=== PATIENT | female | born 1955 | race Caucasian/White ===

== ENCOUNTER → 2017-01-26 | Outpatient (CLI) | payer MEDICARE, OTHER ==
[2015-11-19 08:25] VITALS: BP 135/65
--- NOTE | 2017-01-26 16:37 | RAD ---
Chest CT without contrast Clinical indications: Cough and shortness of air. Smoker for 40 years. Comparison: No previous chest CT. Technique: Noncontrast helical CT scanning of the chest was performed. Multiplanar 2-D reconstructions were generated. PQRS Compliance Statement: One or more of the following individualized dose reduction techniques were utilized for this examination: 1. Automated exposure control 2. Adjustment of the mA and/or kV according to patient size 3. Use of iterative reconstruction technique Findings: No enlarged thoracic lymphadenopathy is seen. The heart size is normal and no pericardial effusion is seen. Calcified atheromatous disease of the coronary arteries is seen. No focal aneurysmal dilatation of the thoracic aorta is seen. There is a spiculated nodule within the right apex measuring 8 mm in size seen on images 13 and 14 and series 2. There is a round smooth nodule measuring only 3 mm in size within the lateral aspect of the left apex seen on image 16 and series 2. There is a noncalcified 7 mm lung nodule within the posterior basal segment of the left lower lobe seen on image 69 and series 2. No consolidative pneumonia is evident. There is some mild linear scarring or atelectasis within the inferior segment of the lingula. Bilateral centrilobular emphysema is seen. No pleural effusion or pneumothorax is seen. The proximal bronchial tree is patent. No adrenal mass is seen. There is mild compression deformity of T11. 13 ribs are seen. IMPRESSION: There is an 8.5 mm spiculated nodule within the right apex. This is near the PET resolution. A PET scan can be performed and if hypermetabolic, then a malignancy is possible. If not, then continued noncontrast chest CT follow-up in 3 months is recommended as per the Fleischner guidelines. The other 2 lung nodules may be followed with a noncontrast chest CT in 6 months as per the Fleischner guidelines. Emphysema. No lung consolidation is seen. Calcified atheromatous disease of the coronary arteries. Mild compression deformity of T11 of indeterminate age.
== END | disposition home or self-care (01) ==
LOC: CT 11:27
PROVIDERS: ATTEND Internal Medicine Pulmonary Disease
DX: J43.9 Emphysema, unspecified (principal); R91.1 Solitary pulmonary nodule; I25.10 Atherosclerotic heart disease of native coronary artery without angina pectoris; M43.8X4 Other specified deforming dorsopathies, thoracic region; F17.200 Nicotine dependence, unspecified, uncomplicated
CPT/HCPCS: 71250

== ENCOUNTER → 2017-05-11 | Outpatient (CLI) | payer MEDICARE ==
[2015-11-19 08:25] VITALS: BP 135/65
--- NOTE | 2017-05-11 16:54 | RAD ---
Indication: Follow-up pulmonary nodules. Technique: Axial images and coronal and sagittal reformatted images are provided. Comparison is from January 26, 2017. One or more of the following individualized dose reduction techniques were utilized for this examination: 1. Automated exposure control 2. Adjustment of the mA and/or kV according to patient size 3. Use of iterative reconstruction technique Findings: 8 x 7 mm spiculated lesion in the right apex is stable. Questioned nodule in the left apex appears calcified. Left lower lobe pulmonary nodule may actually represent 2 adjacent nodules, combined measurement of the 2 is by 6 mm, not appreciably changed compared to my measurement on prior There is apical scarring. There is emphysema which is moderate with an upper lobe predominance. Bandlike opacity in the right upper lobe may be posttreatment change. No new nodule is identified. There is no pleural effusion. There is debris in the esophagus. Heart is not enlarged. Coronary artery calcifications are noted. There is atheromatous disease in the thoracic aorta. There is no definite hilar or mediastinal adenopathy. There are degenerative changes in the spine. There is no adrenal mass. IMPRESSION: 1. Spiculated mass in the right upper lobe is stable. Because of the spiculation, a more aggressive timeline than would be recommended per Fleischner Society guidelines is suggested. I would suggest a follow-up in 3-6 months rather than in a year as Fleischner Society would recommend 2. Other nodules are stable. 3. Emphysema. Electronically signed by: Scottie Castillo MD (05/11/2017 4:51 PM) [id number]
== END | disposition home or self-care (01) ==
LOC: CT 11:19
PROVIDERS: ATTEND Internal Medicine Pulmonary Disease
DX: J43.9 Emphysema, unspecified (principal); I25.10 Atherosclerotic heart disease of native coronary artery without angina pectoris; I70.0 Atherosclerosis of aorta
CPT/HCPCS: 71250

== ENCOUNTER 2017-10-31 19:32 | Inpatient (IN) | payer MEDICARE ==
[~2017-10-31] VITALS: Ht 160 cm; Wt 47.8 kg
[2017-10-31] MEDS ORDERED: IPRATRPIUM/ALBUTEROL 0.5/2.5MG 3 ML NEBU. ONE (19:38)
[2017-10-31] MEDS ORDERED: IV RINGERS SOLUTION,LACTATED 1,000 ML IV SCH (19:40)
--- NOTE | 2017-10-31 19:40 | ED.ADGEN ---
Past History Past Medical History: Anxiety, COPD, Hypertension Past Surgical History: No Surgical History Alcohol Use: None Drug Use: None Adult General Chief Complaint Chief Complaint ".. I been getting.. sick... the last.....2 weeks....coughing.... up green... stuff....worse the .... last couple.........days..."..." can't ....get my....breath...." HPI HPI Patient is a 62 year old female who presents with above hx and complaints of dyspnea, productive cough, and generalized malaise. Pt. has been around a sick grandson. No recent travel. Pt. has hx of COPD and continue tobacco use of 1 and 1/2 packs per day. Pt. has not be oxygen dependant for her COPD as yet. No recent antibiotics or steroids. Pt. does follow at [facility] with Pulmonary Dr. Pandey and Cardiology ?. . Pt. has hx of COPD, HTN, Anxiety. Review of Systems Review of Systems Constitutional: Subjective fever or chills [] Eyes: Denies change in visual acuity, redness, or eye pain [] HENT: Denies nasal congestion or sore throat [] Respiratory: Hx. of cough or shortness of breath [] Cardiovascular: No additional information not addressed in HPI [] GI: Denies abdominal pain, nausea, vomiting, bloody stools or diarrhea [] : Denies dysuria or hematuria [] Musculoskeletal: Denies back pain or joint pain [] Integument: Denies rash or skin lesions [] Neurologic: Denies headache, focal weakness or sensory changes [] Endocrine: Denies polyuria or polydipsia [] All other systems were reviewed and found to be within normal limits, except as documented in this note. Family History Family History Non-contributory Current Medications Current Medications Current Medications Medications (Trade) Dose Ordered Sig/Peyton Start Time Stop Time Status Last Admin Dose Admin Albuterol/ Ipratropium (Duoneb) 3 ml STK-MED ONCE 10/31/17 19:38 10/31/17 19:39 DC Aspirin (Children'S Aspirin) 81 mg STK-MED ONCE 10/31/17 19:49 10/31/17 19:50 DC Azithromycin (Zithromax) 250 mg STK-MED ONCE 10/31/17 19:49 10/31/17 19:51 DC Ceftriaxone Sodium 1 gm/ Sodium Chloride 50 ml @ 100 mls/hr 1X ONCE 10/31/17 20:00 10/31/17 20:29 UNV Lactated Ringer's 1,000 ml @ 100 mls/hr Q10H 10/31/17 19:40 10/31/17 21:18 DC 10/31/17 19:56 100 MLS/HR Methylprednisolone Sodium Succinate (SOLU-Medrol 125MG VIAL) 125 mg STK-MED ONCE 10/31/17 19:49 10/31/17 19:50 DC Allergies Allergies Allergies Coded Allergies Type Severity Reaction Last Updated Verified No Known Drug Allergies 11/19/15 No Physical Exam Physical Exam Constitutional:in acute distress, ill in appearance. [] HENT: Normocephalic, atraumatic, bilateral external ears normal, oropharynx moist, no oral exudates, nose clear rhinorrhea. Eyes: PERRLA, EOMI, conjunctiva normal, no discharge. [] Neck: Normal range of motion, no tenderness, supple, no stridor. [] Cardiovascular:Tachycardia Heart rate regular rhythm, no murmur [] Lungs & Thorax: Bilateral breath sounds equal at apexes with scattered wheezing , purse lip breathing and retractions intercostal. [] Abdomen: Bowel sounds normal, soft, no tenderness, no masses, no pulsatile masses. [] Skin: Warm, diaphoretic, no erythema, no rash. [] Back: No tenderness, no CVA tenderness. [] Extremities: No tenderness, no cyanosis, no clubbing, ROM intact, no edema. [] Neurologic: Alert and oriented X 3, normal motor function, normal sensory function, no focal deficits noted. [] Psychologic: Affect anxious, judgement normal, mood normal. [] Current Patient Data Vital Signs Vital Signs Date Time Temp Pulse Resp B/P (MAP) Pulse Ox O2 Delivery O2 Flow Rate FiO2 10/31/17 19:46 90 Room Air 10/31/17 19:34 98.7 119 28 Lab Results Laboratory Tests Test 10/31/17 19:50 White Blood Count 16.1 x10^3/uL (4.0-11.0) H Red Blood Count 4.00 x10^6/uL (3.50-5.40) Hemoglobin 14.3 g/dL (12.0-15.5) Hematocrit 40.6 % (36.0-47.0) Mean Corpuscular Volume 101 fL (79-100) H Mean Corpuscular Hemoglobin 36 pg (25-35) H Mean Corpuscular Hemoglobin Concent 35 g/dL (31-37) Red Cell Distribution Width 12.4 % (11.5-14.5) Platelet Count 296 x10^3/uL (140-400) Neutrophils (%) (Auto) 87 % (31-73) H Lymphocytes (%) (Auto) 5 % (24-48) L Monocytes (%) (Auto) 7 % (0-9) Eosinophils (%) (Auto) 0 % (0-3) Basophils (%) (Auto) 0 % (0-3) Neutrophils # (Auto) 14.0 x10^3uL (1.8-7.7) H Lymphocytes # (Auto) 0.8 x10^3/uL (1.0-4.8) L Monocytes # (Auto) 1.2 x10^3/uL (0.0-1.1) H Eosinophils # (Auto) 0.0 x10^3/uL (0.0-0.7) Basophils # (Auto) 0.0 x10^3/uL (0.0-0.2) Segmented Neutrophils % 81 % (35-66) H Band Neutrophils % 4 % (0-9) Lymphocytes % 8 % (24-48) L Atypical Lymphocytes % (Manual) 2 % (0-0) H Monocytes % 5 % (0-10) Platelet Estimate Adequate (ADEQUATE) Prothrombin Time 10.8 SEC (9.4-11.4) Prothrombin Time INR 1.1 (0.9-1.1) PTT 34 SEC (23-33) H D-Dimer (Janey) 0.21 mg/L (0.00-0.50) Sodium Level 130 mmol/L (136-145) L Potassium Level 3.7 mmol/L (3.5-5.1) Chloride Level 95 mmol/L (98-107) L Carbon Dioxide Level 24 mmol/L (21-32) Anion Gap 11 (6-14) Blood Urea Nitrogen 7 mg/dL (7-20) Creatinine 0.5 mg/dL (0.6-1.0) L Estimated GFR (Cockcroft-Gault) 124.6 Glucose Level 148 mg/dL (70-99) H Calcium Level 9.0 mg/dL (8.5-10.1) Magnesium Level 1.9 mg/dL (1.8-2.4) Total Bilirubin 1.1 mg/dL (0.2-1.0) H Direct Bilirubin 0.3 mg/dL (0.0-0.2) H Aspartate Amino Transferase (AST) 29 U/L (15-37) Alanine Aminotransferase (ALT) 38 U/L (14-59) Alkaline Phosphatase 93 U/L (46-116) Creatine Kinase 149 U/L (26-192) Creatine Kinase MB (Mass) 5.1 ng/mL (0.0-3.6) H Creatine Kinase MB Relative Index 3.4 % (0-4) Troponin I Quantitative < 0.017 ng/mL (0-0.055) SQ-Dqu-U-Type Natriuretic Peptide 264 pg/mL (0-124) H Total Protein 7.2 g/dL (6.4-8.2) Albumin 3.6 g/dL (3.4-5.0) Lipase 74 U/L (73-393) EKG EKG My interpretation of EKG shows a sinus tachycardia that 110 bpm. L Lt. axis, and a fascicular block. Nonspecific contour abnormality in the anterior leads.[] Radiology/Procedures Radiology/Procedures My interpretation of chest x-ray shows a nodule right apex. Emphysema type changes. No large consolidation. Flattened diaphragm. Scattered parenchymal scarring. Atherosclerotic changes of the aorta.[] Course & Med Decision Making Course & Med Decision Making Pertinent Labs and Imaging studies reviewed. (See chart for details) Discussed presentation,testing and tx. plan with Pt., Daughter and Dr. Palmer - will admit for further eval and tx. - [] Final Impression Final Impression 1. Dyspnea 2. COPD[] 3. Hypertension 4. Respiratory failure hypoxia 5. Anxiety disorder 6. Tobacco abuse 7. Lung nodule 8. Leukocytosis 9. Hyponatremia 10.Macrocytic Indicies 11.Hyperglycemia Dragon Disclaimer Dragon Disclaimer This electronic medical record was generated, in whole or in part, using a voice recognition dictation system. JAI HAYWOOD MD Oct 31, 2017 19:40
[2017-10-31] MEDS ORDERED: ASPIRIN 81 MG TAB.CHEW ONE (19:49)
[2017-10-31] MEDS ORDERED: methylPREDNISolone SOD SUCC PF 125 MG/2 ML VIAL. ONE (19:49)
[2017-10-31] MEDS ORDERED: AZITHROMYCIN 250 MG TABLET. ONE (19:49)
[2017-10-31] MEDS ORDERED: methylPREDNISolone SOD SUCC PF 125 MG/2 ML VIAL. IV ONE (20:00)
[2017-10-31] MEDS ORDERED: ASPIRIN 81 MG TAB.CHEW PO ONE (20:00)
[2017-10-31] MEDS ORDERED: AZITHROMYCIN 250 MG TABLET. PO ONE (20:00)
[2017-10-31] MEDS ORDERED: IV NORMAL SALINE 50ML 50 ML ONE (20:02)
[2017-10-31] MEDS ORDERED: cefTRIAXone SODIUM 1 GM VIAL IV ONE (20:02)
--- NOTE | 2017-10-31 20:02 | EKG ---
[address] [address] Test Date: 2017-10-31 Test Time: 19:55:56 Pat Name: BRITTANEY SANDERSON Department: Room: Gender: F Educational Specialist: : [id number] Requested By: JAI HAYWOOD Order Number: [id number] Reading MD: Moshe Palafox MD Measurements Intervals Johnson Rate: 110 P: 53 LA: 190 QRS: -86 QRSD: 92 T: 57 QT: 340 QTc: 466 Interpretive Statements SINUS TACHYCARDIA PRIOR INFERIOR INFARCT Electronically Signed On 11-01-2017 15:30:00 CDT by Moshe Palafox MD
[2017-10-31] MEDS ORDERED: cefTRIAXone IV Push 1 GM VIAL. IVP ONE (20:15)
[2017-10-31 20:21] LABS: BASO % 0 % (0-3); EOS % 0 % (0-3); HEMATOCRIT 40.6 % (36.0-47.0); HEMOGLOBIN 14.3 g/dL (12.0-15.5); LYMPH # 0.8 x10^3/uL (1.0-4.8); LYMPH % 5 % (24-48); MEAN CORPUSCULAR HEMOGLOBIN 36 pg (25-35); MEAN CORPUSCULAR HGB CONC 35 g/dL (31-37); MEAN CORPUSCULAR VOLUME 101 fL (79-100); MONO # 1.2 x10^3/uL (0.0-1.1); MONO % 7 % (0-9); NEUT % 87 % (31-73); PLATELET COUNT 296 x10^3/uL (140-400); RED CELL DISTRIBUTION WIDTH 12.4 % (11.5-14.5); WHITE BLOOD COUNT 16.1 x10^3/uL (4.0-11.0)
[2017-10-31 20:43] LABS: ALBUMIN 3.6 g/dL (3.4-5.0); CREATININE 0.5 mg/dL (0.6-1.0); DIRECT BILIRUBIN 0.3 mg/dL (0.0-0.2); GFR 124.6; MAGNESIUM 1.9 mg/dL (1.8-2.4); POTASSIUM 3.7 mmol/L (3.5-5.1); TOTAL BILIRUBIN 1.1 mg/dL (0.2-1.0); TOTAL PROTEIN 7.2 g/dL (6.4-8.2)
[2017-10-31] MEDS ORDERED: ONDANSETRON PF 4 MG/2 ML VIAL. IV PRN (20:45)
[2017-10-31] MEDS ORDERED: ENOXAPARIN ** NOTE DOSE ** SYRINGE SQ ONE (21:00)
[2017-10-31 21:10] LABS: % BANDS 4 % (0-9); % LYMPHS 8 % (24-48); % MONOS 5 % (0-10); % SEGS 81 % (35-66)
[2017-10-31 21:11] LABS: PLT ESTIMATE ADEQUATE (ADEQUATE)
[2017-10-31 21:17] LABS: % ATYL 2 % (0-0)
[2017-10-31 21:32] VITALS: BP 149/73
[2017-10-31] MEDS: ENOXAPARIN ** NOTE DOSE ** SYRINGE SQ SCH (21:52)
[2017-10-31] MEDS: NITROGLYCERIN OINT 1 GM PACKET. TP SCH (21:52)
[2017-10-31] MEDS ORDERED: ACET325T9 PO (22:11)
[2017-10-31] MEDS ORDERED: ALBU8.5H8 INH (22:11)
[2017-10-31] MEDS ORDERED: CALC200T3 PO (22:11)
[2017-10-31] MEDS ORDERED: SERT25TA PO (22:11)
[2017-10-31] MEDS ORDERED: CALCIUM CARBONATE 500 MG TAB.CHEW PO PRN (22:15)
[2017-10-31] MEDS ORDERED: ACETAMINOPHEN 325 MG TABLET PO PRN (22:15)
[2017-10-31 22:37] LABS: BGAS PH 7.5 (7.35-7.45)
[2017-10-31 23:05] LABS: BARBITURATES NEG (NEG); BENZODIAZEPINES NEG (NEG); CANNABINOIDS NEG (NEG); COCAINE NEG (NEG); METHADONE NEG (NEG); OPIATES NEG (NEG); PHENCYCLIDINE NEG (NEG)
[2017-10-31 23:08] LABS: BACTERIA,URINE 0 /HPF (0-FEW); BILIRUBIN,URINE NEG (NEG); CLARITY,URINE CLEAR; COLOR,URINE YELLOW; GLUCOSE,URINE NEG (NEG); NITRITE,URINE NEG (NEG); RBC,URINE 0 /HPF (0-2); SQUAMOUS EPITHELIAL CELL,UR OCC /LPF; UROBILINOGEN,URINE 1 mg/dL (0.2 mg/dL); WBC,URINE RARE /HPF (0-4)
[2017-10-31 23:11] LABS: AMPHETAMINE/METHAMPHETAMINE NEG (NEG)
[2017-11-01 03:49] LABS: BASO % 0 % (0-3); EOS % 0 % (0-3); HEMATOCRIT 37.3 % (36.0-47.0); HEMOGLOBIN 13.2 g/dL (12.0-15.5); LYMPH # 0.5 x10^3/uL (1.0-4.8); LYMPH % 5 % (24-48); MEAN CORPUSCULAR HEMOGLOBIN 36 pg (25-35); MEAN CORPUSCULAR HGB CONC 35 g/dL (31-37); MEAN CORPUSCULAR VOLUME 101 fL (79-100); MONO # 0.1 x10^3/uL (0.0-1.1); MONO % 1 % (0-9); NEUT # 10.4 x10^3uL (1.8-7.7); NEUT % 94 % (31-73); PLATELET COUNT 275 x10^3/uL (140-400); RED BLOOD COUNT 3.69 x10^6/uL (3.50-5.40); RED CELL DISTRIBUTION WIDTH 12.4 % (11.5-14.5); WHITE BLOOD COUNT 11.1 x10^3/uL (4.0-11.0)
[2017-11-01 03:58] LABS: CALCIUM 8.7 mg/dL (8.5-10.1); CREATININE 0.5 mg/dL (0.6-1.0); GFR 124.6; POTASSIUM 3.8 mmol/L (3.5-5.1)
[2017-11-01] MEDS: IPRATRPIUM/ALBUTEROL 0.5/2.5MG 3 ML NEBU. NEB SCH ×4 (05:40→20:34)
[2017-11-01 05:55] VITALS: BP 101/56
[2017-11-01] MEDS: ASPIRIN 81 MG TAB.CHEW PO SCH (08:13)
[2017-11-01] MEDS: SERTRALINE 25 MG TABLET. PO SCH (08:13)
[2017-11-01] MEDS: LACTOBACILLUS RHAMNOSUS GG 1 CAPSULE. PO SCH ×2 (08:14→21:04)
[2017-11-01] MEDS: AZITHROMYCIN 250 MG TABLET. PO SCH (08:14)
[2017-11-01] MEDS: ENOXAPARIN ** NOTE DOSE ** SYRINGE SQ SCH (08:16)
[2017-11-01] MEDS: cefTRIAXone IV Push 1 GM VIAL. IVP SCH (08:16)
[2017-11-01] MEDS: NITROGLYCERIN OINT 1 GM PACKET. TP SCH ×3 (08:17→20:53)
[2017-11-01] MEDS: IV RINGERS SOLUTION,LACTATED 1,000 ML IV PRN ×2 (08:25→23:09)
--- NOTE | 2017-11-01 08:25 | RAD ---
DATE: 10/31/2017 8:06 PM INDICATION: Dyspnea. Hx: COPD COMPARISON: CT chest 05/11/2018 FINDINGS: The heart is not enlarged. Atherosclerotic calcifications of the aorta are seen. Right upper lung nodular opacity measuring up proximally 9 mm corresponds to the spiculated lesion in this right lung apex seen on prior CT. In addition there is an irregular nodular opacity measuring 1.5 cm in the left lung base which may be partially due to nipple shadow. Bilateral emphysematous changes are seen. No pleural effusion or pneumothorax. IMPRESSION: 1. The right upper lobe spiculated nodule is again seen better assessed on prior CT. Given the suspicious morphology seen on prior CT, patient is due for follow-up CT. 2. New nodular opacity projecting of the left lung base which may be in part due to nipple shadow. This can be further assessed on the CT 3. No evidence for acute cardiopulmonary process. Electronically signed by: John Beltran MD (11/01/2017 8:22 AM) [facility]
[2017-11-01] MEDS ORDERED: methylPREDNISolone SOD SUCC PF 125 MG/2 ML VIAL. IV SCH (09:00)
[2017-11-01 11:00] VITALS: BP 104/43
[2017-11-01] MEDS ORDERED: DEXTROSE 50% 25 GM / 50ML DISP.SYRIN. IV PRN (12:45)
[2017-11-01] MEDS ORDERED: ALBUTEROL SULFATE 2.5 MG/3 ML NEBU. NEB PRN (14:00)
--- NOTE | 2017-11-01 14:11 | PDOC1 ---
History of Present Illness Reason for Visit: COPD exacerbation History of Present Illness Patient is a 62-year-old female who presented to the emergency department complaining of shortness of breath. Patient relays that last week she had been exposed to a grandchild who was ill with a "cold." Earlier last week she had several days of sneezing and coughing with 2 days of posttussive emesis at times. She was trying to wait until she could get in to see her doctor but yesterday afternoon her shortness of breath had become so severe that she decided to come to the emergency department. On arrival to the emergency department she was found to be in respiratory distress , tachycardic and tachypnea with oxygen saturation 85%. She was treated with breathing treatments and steroids as well as supplemental O2 and her respiratory status began to improve. 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 I find her sitting up on the side of her bed having just finished lunch and talking with her oldest daughter. She relays that she's feeling much better her breathing status has improved and she is not coughing nearly as much. RN relays that she took off the O2 to take her to the bathroom earlier today and when they got back to her bed her sats had dropped to 80%. Her EKG was sinus tachycardia 110 bpm with left axis and left fascicular block, nonspecific contour abnormality in the anterior leads. Chest x-ray: IMPRESSION: 1. The right upper lobe spiculated nodule is again seen better assessed on prior CT. Given the suspicious morphology seen on prior CT, patient is due for follow-up CT. 2. New nodular opacity projecting of the left lung base which may be in part due to nipple shadow. This can be further assessed on the CT 3. No evidence for acute cardiopulmonary process. White blood cell count 16.1, platelets 296, bands 4, d-dimer 0.21, sodium 130, potassium 3.7, BUN 7, creatinine 0.5, cardiac enzymes and BNP unremarkable. She was admitted to the medical floor with breathing treatments and intravenous steroids, intravenous antibiotics given the leukocytosis, supplemental O2 and observation. Past medical history: COPD, lung nodule, anxiety, hypertension, tobaccoism Past surgical history: Negative Social history: Denies alcohol or drug use, smokes 1-1/2 packs per day for many years Chief Complaint: SHORTNESS OF BREATH Allergies: Coded Allergies: No Known Drug Allergies (Unverified , 11/19/15) Review of Systems Review Of Systems Fourteen system , review of systems has been reviewed. See HPI for pertinent positives and negative responses, other robles all other systems are negative, non pertinent or non contributory Medications Current Medications Albuterol/ Ipratropium (Duoneb) 3 ml STK-MED ONCE .ROUTE ; Start 10/31/17 at 19: 38; Stop 10/31/17 at 19:39; Status DC Aspirin (Children'S Aspirin) 324 mg 1X ONCE PO Last administered on 10/31/17at 20:00; Start 10/31/17 at 20:00; Stop 10/31/17 at 20:01; Status DC Lactated Ringer's 1,000 ml @ 100 mls/hr Q10H IV Last administered on at 19:56; Start 10/31/17 at 19:40; Stop 10/31/17 at 21:18; Status DC Methylprednisolone Sodium Succinate (SOLU-Medrol 125MG VIAL) 125 mg 1X ONCE IV Last administered on 10/31/17at 20:01; Start 10/31/17 at 20:00; Stop 10/31/17 at 20:01; Status DC Azithromycin (Zithromax) 500 mg 1X ONCE PO Last administered on 10/31/17at 20: 03; Start 10/31/17 at 20:00; Stop 10/31/17 at 20:01; Status DC Aspirin (Children'S Aspirin) 81 mg STK-MED ONCE .ROUTE ; Start 10/31/17 at 19:49 ; Stop 10/31/17 at 19:50; Status DC Methylprednisolone Sodium Succinate (SOLU-Medrol 125MG VIAL) 125 mg STK-MED ONCE .ROUTE ; Start 10/31/17 at 19:49; Stop 10/31/17 at 19:50; Status DC Azithromycin (Zithromax) 250 mg STK-MED ONCE .ROUTE ; Start 10/31/17 at 19:49; Stop 10/31/17 at 19:51; Status DC Ceftriaxone Sodium 1 gm/ Sodium Chloride 50 ml @ 100 mls/hr 1X ONCE IV ; Start 10/31/17 at 20:00; Stop 10/31/17 at 20:29; Status UNV Ceftriaxone Sodium (Rocephin) 1 gm STK-MED ONCE IV ; Start 10/31/17 at 20:02; Stop 10/31/17 at 20:03; Status DC Sodium Chloride 50 ml @ As Directed STK-MED ONCE .ROUTE ; Start 10/31/17 at 20: 02; Stop 10/31/17 at 20:03; Status DC Ceftriaxone Sodium (Rocephin) 1 gm 1X ONCE IVP Last administered on 10/31/17at 20:13; Start 10/31/17 at 20:15; Stop 10/31/17 at 20:16; Status DC Ondansetron HCl (Zofran) 4 mg PRN Q4HRS PRN IV NAUSEA/VOMITING; Start 10/31/17 at 20:45; Stop 11/01/17 at 20:44 Albuterol/ Ipratropium (Duoneb) 3 ml RTQID NEB Last administered on 11/01/17at 09:52; Start 11/01/17 at 08:00; Stop 11/02/17 at 07:59 Methylprednisolone Sodium Succinate (SOLU-Medrol 125MG VIAL) 125 mg DAILY IV Last administered on 11/01/17at 08:16; Start 11/01/17 at 09:00; Stop 11/01/17 at 13:49; Status DC Lactated Ringer's 1,000 ml @ 75 mls/hr Q13H,20M PRN IV SEE COMMENTS Last administered on 11/01/17at 08:25; Start 10/31/17 at 20:45 Aspirin (Children'S Aspirin) 81 mg DAILY PO Last administered on 11/01/17at 08: 13; Start 11/01/17 at 09:00 Ceftriaxone Sodium 1 gm/ Sodium Chloride 50 ml @ 100 mls/hr DAILY IV ; Start at 09:00; Status UNV Azithromycin (Zithromax) 250 mg DAILY PO Last administered on 11/01/17at 08:14; Start 11/01/17 at 09:00 Nitroglycerin (Nitro-Bid Oint) 1 inch TID TP Last administered on 10/31/17at 21: 52; Start 10/31/17 at 21:00 Enoxaparin Sodium (Lovenox 60mg Syringe) 50 mg 1X ONCE SQ ; Start 10/31/17 at 21:00; Stop 10/31/17 at 21:01; Status DC Enoxaparin Sodium (Lovenox 60mg Syringe) 50 mg Q12HR SQ Last administered on at 08:16; Start 10/31/17 at 21:30 Ceftriaxone Sodium (Rocephin) 1 gm DAILY IVP Last administered on 11/01/17at 08: 16; Start 11/01/17 at 09:00 Acetaminophen (Tylenol) 650 mg PRN Q6HRS PRN PO HEADACHE; Start 10/31/17 at 22: 15 Calcium Carbonate/ Glycine (Tums) 500 mg PRN AFTMEAL PRN PO HEARTBURN / GAS; Start 10/31/17 at 22:15 Sertraline HCl (Zoloft) 25 mg DAILY PO Last administered on 11/01/17at 08:13; Start 11/01/17 at 09:00 Lactobacillus Rhamnosus (Culturelle) 1 cap BID PO Last administered on at 08:14; Start 11/01/17 at 09:00 Insulin Human Lispro (HumaLOG) 0-5 UNITS TIDWMEALS SQ ; Start 11/01/17 at 17:00 Dextrose 12.5 gm PRN Q15MIN PRN IV SEE COMMENTS; Start 11/01/17 at 12:45 Methylprednisolone Sodium Succinate (SOLU-Medrol 125MG VIAL) 125 mg Q6HRS IV ; Start 11/01/17 at 18:00; Status UNV Active Scripts Active Reported Proair Hfa Inhaler (Albuterol Sulfate) 8.5 Gm Hfa.aer.ad 1 Puff INH PRN Q6HRS PRN LAST DOSE GIVEN: DATE: TIME: NEXT DOSE DUE: DATE: TIME: Tylenol (Acetaminophen) 325 Mg Tablet 650 Mg PO PRN Q6HRS PRN LAST DOSE GIVEN: DATE: TIME: NEXT DOSE DUE: DATE: TIME: Tums (Calcium Carbonate) 200 Mg Tab.chew 200 Mg PO PRN AFTMEAL PRN LAST DOSE GIVEN: DATE: TIME: NEXT DOSE DUE: DATE: TIME: Zoloft (Sertraline Hcl) 25 Mg Tablet 25 Mg PO DAILY LAST DOSE GIVEN: DATE: TIME: NEXT DOSE DUE: DATE: TIME: Exam Vital Signs Vital Signs Date Time Temp Pulse Resp B/P (MAP) Pulse Ox O2 Delivery O2 Flow Rate FiO2 11/01/17 11:00 98.3 73 18 104/43 (63) 91 Nasal Cannula 2.0 General Appearance: Alert, Oriented X3, No acute distress HEENT: Atraumatic, PERRLA, EOMI, Mucous membr. moist/pink Respiratory: Other (decreased breath sounds globally with fair air movement) Heart: Regular rate, No murmurs Abdominal: Normal bowel sounds, Soft, No tenderness Extremities: No edema, Normal pulses, No tenderness/swelling Skin: No rashes, No significant lesion Neuro: Normal speech (no conversational dyspnea with supplemental O2), Cranial nerves 3-12 NL Psych/Mental Status: Mental status NL, Mood NL Assessment/Plan Assessment/Plan Respiratory failure COPD exacerbation New left lower lung nodule Hyponatremia: Sodium 136 today Leukocytosis Tobaccoism Hyperglycemia Increase Solu-Medrol to every 6 hours Decrease Lovenox to prophylaxis dosing Add albuterol nebulizer treatments when necessary Continue antibiotics, Rocephin and Zithromax Encouraged to DC smoking CT evaluation of new lung nodule COURSE Allergies Coded Allergies Type Severity Reaction Last Updated Verified No Known Drug Allergies 11/19/15 No Laboratory Tests Test 10/31/17 19:49 10/31/17 19:50 10/31/17 22:40 10/31/17 23:40 Blood Gas pH 7.50 (7.35-7.45) Blood Gas PCO2 31 mmHg (35-45) Blood Gas PO2 45 mmHg (80-100) Blood Gas HCO3 24 mmol/L (22-26) Arterial Bld O2 Saturation (Calc) 85 % (92-99) FiO2 21 % White Blood Count 16.1 x10^3/uL (4.0-11.0) Red Blood Count 4.00 x10^6/uL (3.50-5.40) Hemoglobin 14.3 g/dL (12.0-15.5) Hematocrit 40.6 % (36.0-47.0) Mean Corpuscular Volume 101 fL (79-100) Mean Corpuscular Hemoglobin 36 pg (25-35) Mean Corpuscular Hemoglobin Concent 35 g/dL (31-37) Red Cell Distribution Width 12.4 % (11.5-14.5) Platelet Count 296 x10^3/uL (140-400) Neutrophils (%) (Auto) 87 % (31-73) Lymphocytes (%) (Auto) 5 % (24-48) Monocytes (%) (Auto) 7 % (0-9) Eosinophils (%) (Auto) 0 % (0-3) Basophils (%) (Auto) 0 % (0-3) Neutrophils # (Auto) 14.0 x10^3uL (1.8-7.7) Lymphocytes # (Auto) 0.8 x10^3/uL (1.0-4.8) Monocytes # (Auto) 1.2 x10^3/uL (0.0-1.1) Eosinophils # (Auto) 0.0 x10^3/uL (0.0-0.7) Basophils # (Auto) 0.0 x10^3/uL (0.0-0.2) Segmented Neutrophils % 81 % (35-66) Band Neutrophils % 4 % (0-9) Lymphocytes % 8 % (24-48) Atypical Lymphocytes % (Manual) 2 % (0-0) Monocytes % 5 % (0-10) Platelet Estimate Adequate (ADEQUATE) Prothrombin Time 10.8 SEC (9.4-11.4) Prothromb Time International Ratio 1.1 (0.9-1.1) Activated Partial Thromboplast Time 34 SEC (23-33) D-Dimer (Janey) 0.21 mg/L (0.00-0.50) Sodium Level 130 mmol/L (136-145) Potassium Level 3.7 mmol/L (3.5-5.1) Chloride Level 95 mmol/L (98-107) Carbon Dioxide Level 24 mmol/L (21-32) Anion Gap 11 (6-14) Blood Urea Nitrogen 7 mg/dL (7-20) Creatinine 0.5 mg/dL (0.6-1.0) Estimated GFR (Cockcroft-Gault) 124.6 Glucose Level 148 mg/dL (70-99) Calcium Level 9.0 mg/dL (8.5-10.1) Magnesium Level 1.9 mg/dL (1.8-2.4) Total Bilirubin 1.1 mg/dL (0.2-1.0) Direct Bilirubin 0.3 mg/dL (0.0-0.2) Aspartate Amino Transf (AST/SGOT) 29 U/L (15-37) Alanine Aminotransferase (ALT/SGPT) 38 U/L (14-59) Alkaline Phosphatase 93 U/L (46-116) Creatine Kinase 149 U/L (26-192) Creatine Kinase MB (Mass) 5.1 ng/mL (0.0-3.6) Creatine Kinase MB Relative Index 3.4 % (0-4) Troponin I Quantitative < 0.017 ng/mL (0-0.055) < 0.017 ng/mL (0-0.055) [id number]-Type Natriuretic Peptide 264 pg/mL (0-124) Total Protein 7.2 g/dL (6.4-8.2) Albumin 3.6 g/dL (3.4-5.0) Lipase 74 U/L (73-393) Thyroid Stimulating Hormone (TSH) 1.448 uIU/mL (0.358-3.740) Urine Collection Type Unknown Urine Color Yellow Urine Clarity Clear Urine pH 5.5 Urine Specific [place] 1.010 Urine Protein Neg (NEG-TRACE) Urine Glucose (UA) Neg mg/dL (NEG) Urine Ketones (Stick) 15 mg/dL (NEG) Urine Blood Small (NEG) Urine Nitrite Neg (NEG) Urine Bilirubin Neg (NEG) Urine Urobilinogen Dipstick 1 mg/dL (0.2 mg/dL) Urine Leukocyte Esterase Neg (NEG) Urine RBC 0 /HPF (0-2) Urine WBC Rare /HPF (0-4) Urine Squamous Epithelial Cells Occ /LPF Urine Bacteria 0 /HPF (0-FEW) Urine Opiates Screen Neg (NEG) Urine Methadone Screen Neg (NEG) Urine Barbiturates Neg (NEG) Urine Phencyclidine Screen Neg (NEG) Urine Amphetamine/Methamphetamine Neg (NEG) Urine Benzodiazepines Screen Neg (NEG) Urine Cocaine Screen Neg (NEG) Urine Cannabinoids Screen Neg (NEG) Urine Ethyl Alcohol Neg (NEG) Test 11/01/17 03:40 White Blood Count 11.1 x10^3/uL (4.0-11.0) Red Blood Count 3.69 x10^6/uL (3.50-5.40) Hemoglobin 13.2 g/dL (12.0-15.5) Hematocrit 37.3 % (36.0-47.0) Mean Corpuscular Volume 101 fL (79-100) Mean Corpuscular Hemoglobin 36 pg (25-35) Mean Corpuscular Hemoglobin Concent 35 g/dL (31-37) Red Cell Distribution Width 12.4 % (11.5-14.5) Platelet Count 275 x10^3/uL (140-400) Neutrophils (%) (Auto) 94 % (31-73) Lymphocytes (%) (Auto) 5 % (24-48) Monocytes (%) (Auto) 1 % (0-9) Eosinophils (%) (Auto) 0 % (0-3) Basophils (%) (Auto) 0 % (0-3) Neutrophils # (Auto) 10.4 x10^3uL (1.8-7.7) Lymphocytes # (Auto) 0.5 x10^3/uL (1.0-4.8) Monocytes # (Auto) 0.1 x10^3/uL (0.0-1.1) Eosinophils # (Auto) 0.0 x10^3/uL (0.0-0.7) Basophils # (Auto) 0.0 x10^3/uL (0.0-0.2) Sodium Level 136 mmol/L (136-145) Potassium Level 3.8 mmol/L (3.5-5.1) Chloride Level 100 mmol/L (98-107) Carbon Dioxide Level 27 mmol/L (21-32) Anion Gap 9 (6-14) Blood Urea Nitrogen 7 mg/dL (7-20) Creatinine 0.5 mg/dL (0.6-1.0) Estimated GFR (Cockcroft-Gault) 124.6 Glucose Level 150 mg/dL (70-99) Calcium Level 8.7 mg/dL (8.5-10.1) Troponin I Quantitative < 0.017 ng/mL (0-0.055) Current Medications Medications (Trade) Dose Ordered Sig/Peyton Route PRN Reason Start Time Stop Time Status Last Admin Dose Admin Albuterol/ Ipratropium (Duoneb) 3 ml STK-MED ONCE .ROUTE 10/31/17 19:38 10/31/17 19:39 DC Aspirin (Children'S Aspirin) 324 mg 1X ONCE PO 10/31/17 20:00 10/31/17 20:01 DC 10/31/17 20:00 Lactated Ringer's 1,000 ml @ 100 mls/hr Q10H IV 10/31/17 19:40 10/31/17 21:18 DC 10/31/17 19:56 Methylprednisolone Sodium Succinate (SOLU-Medrol 125MG VIAL) 125 mg 1X ONCE IV 10/31/17 20:00 10/31/17 20:01 DC 10/31/17 20:01 Azithromycin (Zithromax) 500 mg 1X ONCE PO 10/31/17 20:00 10/31/17 20:01 DC 10/31/17 20:03 Aspirin (Children'S Aspirin) 81 mg STK-MED ONCE .ROUTE 10/31/17 19:49 10/31/17 19:50 DC Methylprednisolone Sodium Succinate (SOLU-Medrol 125MG VIAL) 125 mg STK-MED ONCE .ROUTE 10/31/17 19:49 10/31/17 19:50 DC Azithromycin (Zithromax) 250 mg STK-MED ONCE .ROUTE 10/31/17 19:49 10/31/17 19:51 DC Ceftriaxone Sodium 1 gm/ Sodium Chloride 50 ml @ 100 mls/hr 1X ONCE IV 10/31/17 20:00 10/31/17 20:29 UNV Ceftriaxone Sodium (Rocephin) 1 gm STK-MED ONCE IV 10/31/17 20:02 10/31/17 20:03 DC Sodium Chloride 50 ml @ As Directed STK-MED ONCE .ROUTE 10/31/17 20:02 10/31/17 20:03 DC Ceftriaxone Sodium (Rocephin) 1 gm 1X ONCE IVP 10/31/17 20:15 10/31/17 20:16 DC 10/31/17 20:13 Ondansetron HCl (Zofran) 4 mg PRN Q4HRS PRN IV NAUSEA/VOMITING 10/31/17 20:45 11/01/17 20:44 Albuterol/ Ipratropium (Duoneb) 3 ml RTQID NEB 11/01/17 08:00 11/02/17 07:59 11/01/17 09:52 Methylprednisolone Sodium Succinate (SOLU-Medrol 125MG VIAL) 125 mg DAILY IV 11/01/17 09:00 11/01/17 13:49 DC 11/01/17 08:16 Lactated Ringer's 1,000 ml @ 75 mls/hr Q13H,20M PRN IV SEE COMMENTS 10/31/17 20:45 11/01/17 08:25 Aspirin (Children'S Aspirin) 81 mg DAILY PO 11/01/17 09:00 11/01/17 08:13 Ceftriaxone Sodium 1 gm/ Sodium Chloride 50 ml @ 100 mls/hr DAILY IV 11/01/17 09:00 UNV Azithromycin (Zithromax) 250 mg DAILY PO 11/01/17 09:00 11/01/17 08:14 Nitroglycerin (Nitro-Bid Oint) 1 inch TID TP 10/31/17 21:00 10/31/17 21:52 Enoxaparin Sodium (Lovenox 60mg Syringe) 50 mg 1X ONCE SQ 10/31/17 21:00 10/31/17 21:01 DC Enoxaparin Sodium (Lovenox 60mg Syringe) 50 mg Q12HR SQ 10/31/17 21:30 11/01/17 08:16 Ceftriaxone Sodium (Rocephin) 1 gm DAILY IVP 11/01/17 09:00 11/01/17 08:16 Acetaminophen (Tylenol) 650 mg PRN Q6HRS PRN PO HEADACHE 10/31/17 22:15 Calcium Carbonate/ Glycine (Tums) 500 mg PRN AFTMEAL PRN PO HEARTBURN / GAS 10/31/17 22:15 Sertraline HCl (Zoloft) 25 mg DAILY PO 11/01/17 09:00 11/01/17 08:13 Lactobacillus Rhamnosus (Culturelle) 1 cap BID PO 11/01/17 09:00 11/01/17 08:14 Insulin Human Lispro (HumaLOG) 0-5 UNITS TIDWMEALS SQ 11/01/17 17:00 Dextrose 12.5 gm PRN Q15MIN PRN IV SEE COMMENTS 11/01/17 12:45 Methylprednisolone Sodium Succinate (SOLU-Medrol 125MG VIAL) 125 mg Q6HRS IV 11/01/17 18:00 UNV I & O 11/01/17 00:00 Intake Total 240 ml Output Total 300 ml Balance -60 ml Orders Procedure Category Date Status Time Ipratrpium/Albuterol PHA 10/31/17 Complete 0.5/2.5mg (Duoneb) 19:38 Vital Signs ER 10/31/17 Transmitted 19:40 Bp Monitoring ER 10/31/17 Transmitted 19:40 Temperature Monitoring ER 10/31/17 Transmitted 19:40 Saline Lock ER 10/31/17 Transmitted 19:40 Basic Metabolic Panel LAB 10/31/17 Complete 19:40 Cbc W Autodiff LAB 10/31/17 Complete 19:40 Troponin I LAB 10/31/17 Complete 19:40 Protime LAB 10/31/17 Complete 19:40 Ckmb Isoenzymes LAB 10/31/17 Complete 19:40 Creatine Kinase LAB 10/31/17 Complete 19:40 Lipase LAB 10/31/17 Complete 19:40 Hepatic Panel LAB 10/31/17 Complete 19:40 Magnesium LAB 10/31/17 Complete 19:40 Thyroid Stim Hormone LAB 10/31/17 Complete (Tsh) 19:40 D-Dimer LAB 10/31/17 Complete 19:40 Ua, Cult If Indicated LAB 10/31/17 Complete 19:40 Nt-Pro Bnp LAB 10/31/17 Complete 19:40 Drugs Of Abuse Ur LAB 10/31/17 Complete 19:40 Chest Pa & Lateral RAD 10/31/17 Resulted 19:40 Aspirin (Children's PHA 10/31/17 Complete Aspirin) 20:00 12 Lead Ekg EKG 10/31/17 Complete 19:40 Partial LAB 10/31/17 Complete Thromboplastin Time 19:40 Pulse Oximetry: TYLOR 10/31/17 In Process Standing Order 19:40 Iv Ringers PHA 10/31/17 Complete Solution,Lactated (Iv 19:40 Methylprednisolone PHA 10/31/17 Complete 125mg Vial (Solu-Medr 20:00 Azithromycin PHA 10/31/17 Complete (Zithromax) 20:00 Product Test Engineer ER 10/31/17 Transmitted 19:40 Continuous Pulse ER 10/31/17 Transmitted Oximetry 19:40 Arterial Blood Gas LAB 10/31/17 Complete 19:49 Aspirin (Children's PHA 10/31/17 Complete Aspirin) 19:49 Methylprednisolone PHA 10/31/17 Complete 125mg Vial (Solu-Medr 19:49 Azithromycin PHA 10/31/17 Complete (Zithromax) 19:49 Blood Culture GIRISH 10/31/17 In Process 19:59 Ceftriaxone Sodium PHA 10/31/17 Complete (Rocephin) 20:02 Iv Normal Saline 50ml PHA 10/31/17 Complete (Iv Sodium Chlorid 20:02 Ceftriaxone Iv Push PHA 10/31/17 Complete (Rocephin) 20:15 Manual Differential LAB 10/31/17 Complete 19:50 Ed Bridge Order ADT 10/31/17 Transmitted 20:35 Code Status CODE 10/31/17 Transmitted 20:35 Vital Signs, Per TYLOR 10/31/17 In Process Protocol 20:35 Oxygen TYLOR 10/31/17 In Process 20:35 Advance Diet As TYLOR 10/31/17 In Process Tolerated 20:35 Ambulate With TYLOR 10/31/17 In Process Assistance 20:35 Fall Precautions TYLOR 10/31/17 In Process 20:35 Cbc W Autodiff LAB 11/01/17 Complete 06:00 Basic Metabolic Panel LAB 11/01/17 Complete 06:00 Ondansetron Pf PHA 10/31/17 In Process (Zofran) 20:45 Troponin I LAB 10/31/17 Complete 23:35 Ipratrpium/Albuterol PHA 11/01/17 In Process 0.5/2.5mg (Duoneb) 08:00 Incentive Spirometer RT 10/31/17 Complete Incentive Spirometry TYLOR 10/31/17 In Process 20:35 Methylprednisolone PHA 11/01/17 Complete 125mg Vial (Solu-Medr 09:00 Iv Ringers PHA 10/31/17 In Process Solution,Lactated (Iv 20:45 Aspirin (Children's PHA 11/01/17 In Process Aspirin) 09:00 Azithromycin PHA 11/01/17 In Process (Zithromax) 09:00 Airway Inhalation RT 10/31/17 Complete Treatment 20:35 Nitroglycerin Oint PHA 10/31/17 In Process (Nitro-Bid Oint) 21:00 Glucose Poct Q6h TYLOR 10/31/17 In Process 20:46 Enoxaparin 60mg PHA 10/31/17 Complete Syringe (Lovenox 60mg 21:00 Ceftriaxone Iv Push PHA 11/01/17 In Process (Rocephin) 09:00 Enoxaparin 60mg PHA 10/31/17 In Process Syringe (Lovenox 60mg 21:30 Admit Orders ADT 10/31/17 Transmitted 21:15 Cardiac DIET 11/01/17 Transmitted Breakfast Smoking Cessation RT 11/01/17 Complete 3-10 Min 08:00 Pneumatic Compression TYLOR 10/31/17 In Process Device 21:15 Acetaminophen PHA 10/31/17 In Process (Tylenol) 22:15 Calcium Carbonate PHA 10/31/17 In Process (Tums) 22:15 Sertraline (Zoloft) PHA 11/01/17 In Process 09:00 Troponin I LAB 11/01/17 Complete 03:30 Admission Screening CONS 10/31/17 Transmitted 22:34 Rehab Screening (Pt, REHAB 11/01/17 Complete Ot, St) 07:00 Sputum Culture Lc GIRISH 10/31/17 In Process 23:17 Lactobacillus PHA 11/01/17 In Process Rhamnosus Gg 09:00 Ct Chest Wo Contrast CT 11/01/17 Taken 09:44 Oxygen Daily RT 11/01/17 Complete Airway Inhalation RT 11/01/17 Complete Treatment Pulse Oximetry Single RT 11/01/17 Complete / Glucose Poct Achs TYLOR 11/01/17 In Process 12:41 Insulin Lispro PHA 11/01/17 In Process (Humalog) 17:00 Dextrose 50% PHA 11/01/17 In Process 12:45 Hypoglycemia Protocol TYLOR 11/01/17 In Process Adult 12:41 Methylprednisolone PHA 11/01/17 Logged 125mg Vial (Solu-Medr 18:00 Albuterol Sulfate PHA 11/01/17 Verified (Ventolin) 14:00 Airway Inhalation RT 11/01/17 Verified Treatment 13:49 Enoxaparin 40mg PHA 11/01/17 Verified Syringe (Lovenox 40mg 14:00 Vital Signs Date Time Temp Pulse Resp B/P (MAP) Pulse Ox O2 Delivery O2 Flow Rate FiO2 11/01/17 11:00 98.3 73 18 104/43 (63) 91 Nasal Cannula 2.0 RADHA MAYO DO Nov 01, 2017 14:11
[2017-11-01 15:22] VITALS: BP 105/54
--- NOTE | 2017-11-01 17:01 | RAD ---
CT CHEST WO CONTRAST Indication: ABNORMAL CXR Exposure: One or more of the following individualized dose reduction techniques were utilized for this examination: 1. Automated exposure control 2. Adjustment of the mA and/or kV according to patient size 3. Use of iterative reconstruction technique. Comparison: May 11, 2017 Contrast: None FINDINGS: Vascular structures: Limited exam without contrast. Aorta is calcified, but no evidence of aneurysm. Lymph nodes:No significant enlargement Thyroid gland:Visualized aspect is unremarkable. Heart: Mild calcifications. Esophagus: Unremarkable Pleural spaces: No significant effusion Lungs: Emphysematous changes. Spiculated right upper lobe nodule, image 30, measures 8 mm, unchanged irregular nodule in the left lower lobe, image 42 measures 9 mm and is unchanged. No new mass is identified. Linear markings in the right lung are stable, likely scarring. No acute airspace consolidation.. Emphysema. Trachea and central airways: Patent Spine: Degenerative spondylosis. Mild superior endplate compression deformity of a lower thoracic vertebrae. Findings are unchanged. Bones: No destructive process Upper abdomen: Slices obtained through the upper most abdomen are limited by the noncontrast technique. No obvious acute findings. Impression: 1. Stable right upper lobe and left lower lobe pulmonary nodules. 2. Emphysema. Electronically signed by: Umer Umana MD (11/01/2017 4:57 PM) [id number]
[2017-11-01] MEDS: INSULIN LISPRO 300 UNITS/3 ML INSULN.PEN. SQ SCH (17:10)
[2017-11-01] MEDS: methylPREDNISolone SOD SUCC PF 125 MG/2 ML VIAL. IV SCH ×2 (17:11→23:03)
[2017-11-01 18:45] VITALS: BP 108/53
[2017-11-01 23:08] VITALS: BP 118/50
[2017-11-02 03:14] LABS: HEMOGLOBIN A1C 5.5 % (4.8-5.6)
[2017-11-02 05:07] VITALS: BP 130/61
[2017-11-02] MEDS: IPRATRPIUM/ALBUTEROL 0.5/2.5MG 3 ML NEBU. NEB SCH ×4 (05:31→20:14)
[2017-11-02] MEDS: methylPREDNISolone SOD SUCC PF 125 MG/2 ML VIAL. IV SCH ×3 (05:45→21:40)
[2017-11-02 06:14] LABS: BASO % 0 % (0-3); EOS % 0 % (0-3); HEMOGLOBIN 11.9 g/dL (12.0-15.5); LYMPH # 0.8 x10^3/uL (1.0-4.8); LYMPH % 7 % (24-48); MEAN CORPUSCULAR HEMOGLOBIN 36 pg (25-35); MEAN CORPUSCULAR HGB CONC 35 g/dL (31-37); MEAN CORPUSCULAR VOLUME 103 fL (79-100); MONO # 0.3 x10^3/uL (0.0-1.1); MONO % 3 % (0-9); NEUT # 9.5 x10^3uL (1.8-7.7); NEUT % 90 % (31-73); PLATELET COUNT 254 x10^3/uL (140-400); RED CELL DISTRIBUTION WIDTH 12.3 % (11.5-14.5); WHITE BLOOD COUNT 10.6 x10^3/uL (4.0-11.0)
[2017-11-02 06:17] LABS: CALCIUM 8.7 mg/dL (8.5-10.1); CREATININE 0.6 mg/dL (0.6-1.0); POTASSIUM 3.9 mmol/L (3.5-5.1)
[2017-11-02] MEDS: INSULIN LISPRO 300 UNITS/3 ML INSULN.PEN. SQ SCH ×3 (08:00→17:00)
[2017-11-02] MEDS: ENOXAPARIN 40 MG/0.4 ML SYRINGE. SQ SCH (08:40)
[2017-11-02] MEDS: ASPIRIN 81 MG TAB.CHEW PO SCH (08:40)
[2017-11-02] MEDS: AZITHROMYCIN 250 MG TABLET. PO SCH (08:40)
[2017-11-02] MEDS: LACTOBACILLUS RHAMNOSUS GG 1 CAPSULE. PO SCH ×2 (08:40→20:12)
[2017-11-02] MEDS: SERTRALINE 25 MG TABLET. PO SCH (08:40)
[2017-11-02] MEDS: NITROGLYCERIN OINT 1 GM PACKET. TP SCH (08:47)
[2017-11-02] MEDS: cefTRIAXone IV Push 1 GM VIAL. IVP SCH (10:26)
[2017-11-02 10:39] VITALS: BP 133/67
--- NOTE | 2017-11-02 12:40 | PDOC ---
SUBJECTIVE: I find the patient sitting up in bed watching something on her Ipad. She says she's continuing to feel improvement with her breathing. She is coughing up greenish yellow thick sputum and denies any new or worsening symptoms. I discussed discharge planning with her including home O2. She is aware that that will likely be necessary but doesn't feel well enough to go home today. I discussed the findings of her chest CT: Impression: 1. Stable right upper lobe and left lower lobe pulmonary nodules. 2. Emphysema. Her oxygen saturation has ranged from 90-98% on 2 L O2 per nasal cannula. This is a Improvement from yesterday. OBJECTIVE: Problems: Problems Medical Problems: (1) Dyspnea Status: Acute Hemoglobin has dropped to 11.9 it is macrocytic, this is believed to be due to hydration. Vital Signs: Vital Signs Date Time Temp Pulse Resp B/P (MAP) Pulse Ox O2 Delivery O2 Flow Rate FiO2 11/02/17 11:00 98 Nasal Cannula 2.0 11/02/17 10:39 98.3 87 24 133/67 (89) I & O Intake and Output 11/02/17 07:00 Intake Total 3086.03 ml Balance 3086.03 ml Intake Oral 920 ml IV Total 2166.03 ml # Voids 7 # Bowel Movements 1 Labs: Laboratory Tests Test 10/31/17 19:49 10/31/17 19:50 10/31/17 22:40 10/31/17 23:40 Blood Gas pH 7.50 (7.35-7.45) Blood Gas PCO2 31 mmHg (35-45) Blood Gas PO2 45 mmHg (80-100) Blood Gas HCO3 24 mmol/L (22-26) Arterial Bld O2 Saturation (Calc) 85 % (92-99) FiO2 21 % White Blood Count 16.1 x10^3/uL (4.0-11.0) Red Blood Count 4.00 x10^6/uL (3.50-5.40) Hemoglobin 14.3 g/dL (12.0-15.5) Hematocrit 40.6 % (36.0-47.0) Mean Corpuscular Volume 101 fL (79-100) Mean Corpuscular Hemoglobin 36 pg (25-35) Mean Corpuscular Hemoglobin Concent 35 g/dL (31-37) Red Cell Distribution Width 12.4 % (11.5-14.5) Platelet Count 296 x10^3/uL (140-400) Neutrophils (%) (Auto) 87 % (31-73) Lymphocytes (%) (Auto) 5 % (24-48) Monocytes (%) (Auto) 7 % (0-9) Eosinophils (%) (Auto) 0 % (0-3) Basophils (%) (Auto) 0 % (0-3) Neutrophils # (Auto) 14.0 x10^3uL (1.8-7.7) Lymphocytes # (Auto) 0.8 x10^3/uL (1.0-4.8) Monocytes # (Auto) 1.2 x10^3/uL (0.0-1.1) Eosinophils # (Auto) 0.0 x10^3/uL (0.0-0.7) Basophils # (Auto) 0.0 x10^3/uL (0.0-0.2) Segmented Neutrophils % 81 % (35-66) Band Neutrophils % 4 % (0-9) Lymphocytes % 8 % (24-48) Atypical Lymphocytes % (Manual) 2 % (0-0) Monocytes % 5 % (0-10) Platelet Estimate Adequate (ADEQUATE) Prothrombin Time 10.8 SEC (9.4-11.4) Prothromb Time International Ratio 1.1 (0.9-1.1) Activated Partial Thromboplast Time 34 SEC (23-33) D-Dimer (Janey) 0.21 mg/L (0.00-0.50) Sodium Level 130 mmol/L (136-145) Potassium Level 3.7 mmol/L (3.5-5.1) Chloride Level 95 mmol/L (98-107) Carbon Dioxide Level 24 mmol/L (21-32) Anion Gap 11 (6-14) Blood Urea Nitrogen 7 mg/dL (7-20) Creatinine 0.5 mg/dL (0.6-1.0) Estimated GFR (Cockcroft-Gault) 124.6 Glucose Level 148 mg/dL (70-99) Calcium Level 9.0 mg/dL (8.5-10.1) Magnesium Level 1.9 mg/dL (1.8-2.4) Total Bilirubin 1.1 mg/dL (0.2-1.0) Direct Bilirubin 0.3 mg/dL (0.0-0.2) Aspartate Amino Transf (AST/SGOT) 29 U/L (15-37) Alanine Aminotransferase (ALT/SGPT) 38 U/L (14-59) Alkaline Phosphatase 93 U/L (46-116) Creatine Kinase 149 U/L (26-192) Creatine Kinase MB (Mass) 5.1 ng/mL (0.0-3.6) Creatine Kinase MB Relative Index 3.4 % (0-4) Troponin I Quantitative < 0.017 ng/mL (0-0.055) < 0.017 ng/mL (0-0.055) FL-Vay-C-Type Natriuretic Peptide 264 pg/mL (0-124) Total Protein 7.2 g/dL (6.4-8.2) Albumin 3.6 g/dL (3.4-5.0) Lipase 74 U/L (73-393) Thyroid Stimulating Hormone (TSH) 1.448 uIU/mL (0.358-3.740) Urine Collection Type Unknown Urine Color Yellow Urine Clarity Clear Urine pH 5.5 Urine Specific [place] 1.010 Urine Protein Neg (NEG-TRACE) Urine Glucose (UA) Neg mg/dL (NEG) Urine Ketones (Stick) 15 mg/dL (NEG) Urine Blood Small (NEG) Urine Nitrite Neg (NEG) Urine Bilirubin Neg (NEG) Urine Urobilinogen Dipstick 1 mg/dL (0.2 mg/dL) Urine Leukocyte Esterase Neg (NEG) Urine RBC 0 /HPF (0-2) Urine WBC Rare /HPF (0-4) Urine Squamous Epithelial Cells Occ /LPF Urine Bacteria 0 /HPF (0-FEW) Urine Opiates Screen Neg (NEG) Urine Methadone Screen Neg (NEG) Urine Barbiturates Neg (NEG) Urine Phencyclidine Screen Neg (NEG) Urine Amphetamine/Methamphetamine Neg (NEG) Urine Benzodiazepines Screen Neg (NEG) Urine Cocaine Screen Neg (NEG) Urine Cannabinoids Screen Neg (NEG) Urine Ethyl Alcohol Neg (NEG) Test 11/01/17 03:40 11/01/17 16:50 11/01/17 19:56 11/02/17 05:48 White Blood Count 11.1 x10^3/uL (4.0-11.0) 10.6 x10^3/uL (4.0-11.0) Red Blood Count 3.69 x10^6/uL (3.50-5.40) 3.30 x10^6/uL (3.50-5.40) Hemoglobin 13.2 g/dL (12.0-15.5) 11.9 g/dL (12.0-15.5) Hematocrit 37.3 % (36.0-47.0) 34.0 % (36.0-47.0) Mean Corpuscular Volume 101 fL (79-100) 103 fL (79-100) Mean Corpuscular Hemoglobin 36 pg (25-35) 36 pg (25-35) Mean Corpuscular Hemoglobin Concent 35 g/dL (31-37) 35 g/dL (31-37) Red Cell Distribution Width 12.4 % (11.5-14.5) 12.3 % (11.5-14.5) Platelet Count 275 x10^3/uL (140-400) 254 x10^3/uL (140-400) Neutrophils (%) (Auto) 94 % (31-73) 90 % (31-73) Lymphocytes (%) (Auto) 5 % (24-48) 7 % (24-48) Monocytes (%) (Auto) 1 % (0-9) 3 % (0-9) Eosinophils (%) (Auto) 0 % (0-3) 0 % (0-3) Basophils (%) (Auto) 0 % (0-3) 0 % (0-3) Neutrophils # (Auto) 10.4 x10^3uL (1.8-7.7) 9.5 x10^3uL (1.8-7.7) Lymphocytes # (Auto) 0.5 x10^3/uL (1.0-4.8) 0.8 x10^3/uL (1.0-4.8) Monocytes # (Auto) 0.1 x10^3/uL (0.0-1.1) 0.3 x10^3/uL (0.0-1.1) Eosinophils # (Auto) 0.0 x10^3/uL (0.0-0.7) 0.0 x10^3/uL (0.0-0.7) Basophils # (Auto) 0.0 x10^3/uL (0.0-0.2) 0.0 x10^3/uL (0.0-0.2) Sodium Level 136 mmol/L (136-145) 137 mmol/L (136-145) Potassium Level 3.8 mmol/L (3.5-5.1) 3.9 mmol/L (3.5-5.1) Chloride Level 100 mmol/L (98-107) 100 mmol/L (98-107) Carbon Dioxide Level 27 mmol/L (21-32) 29 mmol/L (21-32) Anion Gap 9 (6-14) 8 (6-14) Blood Urea Nitrogen 7 mg/dL (7-20) 10 mg/dL (7-20) Creatinine 0.5 mg/dL (0.6-1.0) 0.6 mg/dL (0.6-1.0) Estimated GFR (Cockcroft-Gault) 124.6 101.0 Glucose Level 150 mg/dL (70-99) 175 mg/dL (70-99) Hemoglobin A1c 5.5 % (4.8-5.6) Calcium Level 8.7 mg/dL (8.5-10.1) 8.7 mg/dL (8.5-10.1) Troponin I Quantitative < 0.017 ng/mL (0-0.055) Glucose (Fingerstick) 170 mg/dL (70-99) 138 mg/dL (70-99) Test 11/02/17 07:45 Glucose (Fingerstick) 178 mg/dL (70-99) Physical Exam: Gen.: Sitting up in bed in no apparent distress and no conversational dyspnea with O2 supplementation HEENT: PERRLA, EOMI, mucous membranes moist airway is patent Neck: Supple nontender Cardiovascular: Normal S1 and S2, no murmur Pulmonary: Improved air movement from yesterday fair to good, coarse breath sounds with faint wheezes bilaterally Abdomen: Soft nontender nondistended Extremities: Nontender, no clubbing cyanosis or edema Neuro: Alert and oriented 3, cranial nerves II through XII intact, no lateralizing neuro deficits ASSESSMENT: Acute respiratory failure COPD exacerbation Bronchitis Macrocytic anemia, overnight drop in hemoglobin likely due to hydration Steroid-induced hyperglycemia Tobaccoism PLAN: Decrease Solu-Medrol to every 8 hours Hep-Lock IV fluids Continue sliding scale insulin Recheck a.m. labs Discharge planning tentatively for tomorrow RADHA MAYO DO Nov 02, 2017 12:40
[2017-11-02 14:53] VITALS: BP 125/62
[2017-11-02 18:39] VITALS: BP 133/61
[2017-11-02 22:19] VITALS: BP 122/58
[2017-11-03 05:07] VITALS: BP 150/58
[2017-11-03] MEDS: methylPREDNISolone SOD SUCC PF 125 MG/2 ML VIAL. IV SCH (05:25)
[2017-11-03] MEDS: IPRATRPIUM/ALBUTEROL 0.5/2.5MG 3 ML NEBU. NEB SCH (05:43)
[2017-11-03 06:31] LABS: BASO % 0 % (0-3); EOS % 0 % (0-3); HEMATOCRIT 36.1 % (36.0-47.0); HEMOGLOBIN 12.6 g/dL (12.0-15.5); LYMPH # 0.8 x10^3/uL (1.0-4.8); LYMPH % 8 % (24-48); MEAN CORPUSCULAR HEMOGLOBIN 36 pg (25-35); MEAN CORPUSCULAR HGB CONC 35 g/dL (31-37); MEAN CORPUSCULAR VOLUME 104 fL (79-100); MONO # 0.4 x10^3/uL (0.0-1.1); MONO % 4 % (0-9); NEUT # 8.3 x10^3uL (1.8-7.7); NEUT % 88 % (31-73); PLATELET COUNT 298 x10^3/uL (140-400); RED BLOOD COUNT 3.49 x10^6/uL (3.50-5.40); RED CELL DISTRIBUTION WIDTH 12.4 % (11.5-14.5); WHITE BLOOD COUNT 9.5 x10^3/uL (4.0-11.0)
[2017-11-03] MEDS: INSULIN LISPRO 300 UNITS/3 ML INSULN.PEN. SQ SCH (08:50)
[2017-11-03] MEDS: ENOXAPARIN 40 MG/0.4 ML SYRINGE. SQ SCH (08:50)
[2017-11-03] MEDS: LACTOBACILLUS RHAMNOSUS GG 1 CAPSULE. PO SCH (08:51)
[2017-11-03] MEDS: ASPIRIN 81 MG TAB.CHEW PO SCH (08:51)
[2017-11-03] MEDS: SERTRALINE 25 MG TABLET. PO SCH (08:51)
[2017-11-03] MEDS: AZITHROMYCIN 250 MG TABLET. PO SCH (08:51)
[2017-11-03] MEDS: cefTRIAXone IV Push 1 GM VIAL. IVP SCH (08:53)
--- NOTE | 2017-11-03 09:56 | PDOC3 ---
Discharge Summary Visit Information Date of Admission: Oct 31, 2017 Date of Discharge: Nov 03, 2017 Admitting Diagnosis: acute respiratory failure, COPD exacerbation Final Diagnosis Problems Medical Problems: Acute respiratory failure COPD exacerbation Tobaccoism (1) Dyspnea Status: Acute Brief Hospital Course Allergies Allergies Coded Allergies Type Severity Reaction Last Updated Verified No Known Drug Allergies 11/19/15 No Vital Signs Vital Signs Date Time Temp Pulse Resp B/P (MAP) Pulse Ox O2 Delivery O2 Flow Rate FiO2 11/03/17 05:45 97 Nasal Cannula 1.0 11/03/17 05:07 97.8 65 22 150/58 (88) Lab Results Laboratory Tests Test 11/01/17 16:50 11/01/17 19:56 11/02/17 05:48 11/02/17 07:45 Glucose (Fingerstick) 170 mg/dL (70-99) 138 mg/dL (70-99) 178 mg/dL (70-99) White Blood Count 10.6 x10^3/uL (4.0-11.0) Red Blood Count 3.30 x10^6/uL (3.50-5.40) Hemoglobin 11.9 g/dL (12.0-15.5) Hematocrit 34.0 % (36.0-47.0) Mean Corpuscular Volume 103 fL (79-100) Mean Corpuscular Hemoglobin 36 pg (25-35) Mean Corpuscular Hemoglobin Concent 35 g/dL (31-37) Red Cell Distribution Width 12.3 % (11.5-14.5) Platelet Count 254 x10^3/uL (140-400) Neutrophils (%) (Auto) 90 % (31-73) Lymphocytes (%) (Auto) 7 % (24-48) Monocytes (%) (Auto) 3 % (0-9) Eosinophils (%) (Auto) 0 % (0-3) Basophils (%) (Auto) 0 % (0-3) Neutrophils # (Auto) 9.5 x10^3uL (1.8-7.7) Lymphocytes # (Auto) 0.8 x10^3/uL (1.0-4.8) Monocytes # (Auto) 0.3 x10^3/uL (0.0-1.1) Eosinophils # (Auto) 0.0 x10^3/uL (0.0-0.7) Basophils # (Auto) 0.0 x10^3/uL (0.0-0.2) Sodium Level 137 mmol/L (136-145) Potassium Level 3.9 mmol/L (3.5-5.1) Chloride Level 100 mmol/L (98-107) Carbon Dioxide Level 29 mmol/L (21-32) Anion Gap 8 (6-14) Blood Urea Nitrogen 10 mg/dL (7-20) Creatinine 0.6 mg/dL (0.6-1.0) Estimated GFR (Cockcroft-Gault) 101.0 Glucose Level 175 mg/dL (70-99) Calcium Level 8.7 mg/dL (8.5-10.1) Test 11/02/17 11:34 11/02/17 16:24 11/03/17 05:55 11/03/17 07:42 Glucose (Fingerstick) 176 mg/dL (70-99) 159 mg/dL (70-99) 201 mg/dL (70-99) White Blood Count 9.5 x10^3/uL (4.0-11.0) Red Blood Count 3.49 x10^6/uL (3.50-5.40) Hemoglobin 12.6 g/dL (12.0-15.5) Hematocrit 36.1 % (36.0-47.0) Mean Corpuscular Volume 104 fL (79-100) Mean Corpuscular Hemoglobin 36 pg (25-35) Mean Corpuscular Hemoglobin Concent 35 g/dL (31-37) Red Cell Distribution Width 12.4 % (11.5-14.5) Platelet Count 298 x10^3/uL (140-400) Neutrophils (%) (Auto) 88 % (31-73) Lymphocytes (%) (Auto) 8 % (24-48) Monocytes (%) (Auto) 4 % (0-9) Eosinophils (%) (Auto) 0 % (0-3) Basophils (%) (Auto) 0 % (0-3) Neutrophils # (Auto) 8.3 x10^3uL (1.8-7.7) Lymphocytes # (Auto) 0.8 x10^3/uL (1.0-4.8) Monocytes # (Auto) 0.4 x10^3/uL (0.0-1.1) Eosinophils # (Auto) 0.0 x10^3/uL (0.0-0.7) Basophils # (Auto) 0.0 x10^3/uL (0.0-0.2) Brief Hospital Course Ms. Hernandez is a 62 old female who presented to the emergency department in respiratory distress after a few days of cold symptoms. CT of the chest revealed a new left lower pulmonary nodule but no acute findings. She was admitted to [address] [place] [address] requiring 2 L of O2 per nasal cannula to maintain oxygen saturation greater than 90%. Due to leukocytosis and upper respiratory symptoms in the emergency department Rocephin and Zithromax intravenously was initiated as well as nebulizer treatments and Solu-Medrol IV. Her improvement was slow over the course of 3 days and today she still requires 1 L of O2 per nasal cannula to maintain acceptable oxygen saturation. She's feeling much better today, not coughing up as much yellow sputum as an days prior. She feels as if she can take deep breaths today and no longer fears going home. Her hemoglobin increased from 11.9-12.6 macrocytic, fingerstick blood sugars have ranged from 159-201 resulting from Solu-Medrol. Several room air trials have resulted in sats dropping to the mid to upper 80s at rest and home O2 has been arranged by case management. She'll be discharged home with prednisone 20 mg twice daily for 5 days as well as a Z-Gaudencio. She follows with Dr. Pandey and has a follow-up appointment scheduled with him, she's been advised to stop smoking. Gen.: No apparent distress sitting up on the side of the bed over cessation will dyspnea with supplemental O2 HEENT: Normocephalic atraumatic conjunctiva clear mucous membranes moist Neck: Supple no tenderness Cardiovascular: Normal S1 and S2 no murmurs Pulmonary: Improved air movement from yesterday no rales or rhonchi faint wheezes noted Extremities: No clubbing cyanosis or edema Neuro: Alert and oriented 3 in no lateralizing neuro deficits Discharge Information Condition at Discharge: Improved Follow Up: Weeks (1) Disposition/Orders: D/C to Home w/ HH Dischare Medications Current Medications Albuterol/ Ipratropium (Duoneb) 3 ml STK-MED ONCE .ROUTE ; Start 10/31/17 at 19: 38; Stop 10/31/17 at 19:39; Status DC Aspirin (Children'S Aspirin) 324 mg 1X ONCE PO Last administered on 10/31/17at 20:00; Start 10/31/17 at 20:00; Stop 10/31/17 at 20:01; Status DC Lactated Ringer's 1,000 ml @ 100 mls/hr Q10H IV Last administered on at 19:56; Start 10/31/17 at 19:40; Stop 10/31/17 at 21:18; Status DC Methylprednisolone Sodium Succinate (SOLU-Medrol 125MG VIAL) 125 mg 1X ONCE IV Last administered on 10/31/17at 20:01; Start 10/31/17 at 20:00; Stop 10/31/17 at 20:01; Status DC Azithromycin (Zithromax) 500 mg 1X ONCE PO Last administered on 10/31/17at 20: 03; Start 10/31/17 at 20:00; Stop 10/31/17 at 20:01; Status DC Aspirin (Children'S Aspirin) 81 mg STK-MED ONCE .ROUTE ; Start 10/31/17 at 19:49 ; Stop 10/31/17 at 19:50; Status DC Methylprednisolone Sodium Succinate (SOLU-Medrol 125MG VIAL) 125 mg STK-MED ONCE .ROUTE ; Start 10/31/17 at 19:49; Stop 10/31/17 at 19:50; Status DC Azithromycin (Zithromax) 250 mg STK-MED ONCE .ROUTE ; Start 10/31/17 at 19:49; Stop 10/31/17 at 19:51; Status DC Ceftriaxone Sodium 1 gm/ Sodium Chloride 50 ml @ 100 mls/hr 1X ONCE IV ; Start 10/31/17 at 20:00; Stop 10/31/17 at 20:29; Status UNV Ceftriaxone Sodium (Rocephin) 1 gm STK-MED ONCE IV ; Start 10/31/17 at 20:02; Stop 10/31/17 at 20:03; Status DC Sodium Chloride 50 ml @ As Directed STK-MED ONCE .ROUTE ; Start 10/31/17 at 20: 02; Stop 10/31/17 at 20:03; Status DC Ceftriaxone Sodium (Rocephin) 1 gm 1X ONCE IVP Last administered on 10/31/17at 20:13; Start 10/31/17 at 20:15; Stop 10/31/17 at 20:16; Status DC Ondansetron HCl (Zofran) 4 mg PRN Q4HRS PRN IV NAUSEA/VOMITING; Start 10/31/17 at 20:45; Stop 11/01/17 at 20:44; Status DC Albuterol/ Ipratropium (Duoneb) 3 ml RTQID NEB Last administered on 11/02/17at 05:31; Start 11/01/17 at 08:00; Stop 11/02/17 at 07:59; Status DC Methylprednisolone Sodium Succinate (SOLU-Medrol 125MG VIAL) 125 mg DAILY IV Last administered on 11/01/17at 08:16; Start 11/01/17 at 09:00; Stop 11/01/17 at 13:49; Status DC Lactated Ringer's 1,000 ml @ 75 mls/hr Q13H,20M PRN IV SEE COMMENTS Last administered on 11/01/17at 23:09; Start 10/31/17 at 20:45 Aspirin (Children'S Aspirin) 81 mg DAILY PO Last administered on 11/03/17at 08: 51; Start 11/01/17 at 09:00 Ceftriaxone Sodium 1 gm/ Sodium Chloride 50 ml @ 100 mls/hr DAILY IV ; Start at 09:00; Status UNV Azithromycin (Zithromax) 250 mg DAILY PO Last administered on 11/03/17at 08:51; Start 11/01/17 at 09:00 Nitroglycerin (Nitro-Bid Oint) 1 inch TID TP Last administered on 10/31/17at 21: 52; Start 10/31/17 at 21:00; Stop 11/02/17 at 08:47; Status DC Enoxaparin Sodium (Lovenox 60mg Syringe) 50 mg 1X ONCE SQ ; Start 10/31/17 at 21:00; Stop 10/31/17 at 21:01; Status DC Enoxaparin Sodium (Lovenox 60mg Syringe) 50 mg Q12HR SQ Last administered on at 08:16; Start 10/31/17 at 21:30; Stop 11/01/17 at 13:56; Status DC Ceftriaxone Sodium (Rocephin) 1 gm DAILY IVP Last administered on 11/03/17 08: 53; Start 11/01/17 at 09:00 Acetaminophen (Tylenol) 650 mg PRN Q6HRS PRN PO HEADACHE; Start 10/31/17 at 22: 15 Calcium Carbonate/ Glycine (Tums) 500 mg PRN AFTMEAL PRN PO HEARTBURN / GAS; Start 10/31/17 at 22:15 Sertraline HCl (Zoloft) 25 mg DAILY PO Last administered on 11/03/17 08:51; Start 11/01/17 at 09:00 Lactobacillus Rhamnosus (Culturelle) 1 cap BID PO Last administered on 08:51; Start 11/01/17 at 09:00 Insulin Human Lispro (HumaLOG) 0-5 UNITS TIDWMEALS SQ Last administered on 11/03 08:50; Start 11/01/17 at 17:00 Dextrose 12.5 gm PRN Q15MIN PRN IV SEE COMMENTS; Start 11/01/17 at 12:45 Methylprednisolone Sodium Succinate (SOLU-Medrol 125MG VIAL) 125 mg Q6HRS IV Last administered on 11/02/17at 05:45; Start 11/01/17 at 18:00; Stop 11/02/17 at 12:02; Status DC Albuterol Sulfate (Ventolin) 2.5 mg PRN Q4HRS PRN NEB SHORTNESS OF BREATH; Start 11/01/17 at 14:00 Enoxaparin Sodium (Lovenox 40mg Syringe) 40 mg Q24H SQ Last administered on 08:50; Start 11/02/17 at 09:00 Albuterol/ Ipratropium (Duoneb) 3 ml RTQID NEB Last administered on 11/03/17 05:43; Start 11/02/17 at 12:00 Methylprednisolone Sodium Succinate (SOLU-Medrol 125MG VIAL) 125 mg Q8HRS IV Last administered on 11/03/17 05:25; Start 11/02/17 at 14:00 Active Scripts Active Reported Proair Hfa Inhaler (Albuterol Sulfate) 8.5 Gm Hfa.aer.ad 1 Puff INH PRN Q6HRS PRN LAST DOSE GIVEN: DATE: TIME: NEXT DOSE DUE: DATE: TIME: Tylenol (Acetaminophen) 325 Mg Tablet 650 Mg PO PRN Q6HRS PRN LAST DOSE GIVEN: DATE: TIME: NEXT DOSE DUE: DATE: TIME: Tums (Calcium Carbonate) 200 Mg Tab.chew 200 Mg PO PRN AFTMEAL PRN LAST DOSE GIVEN: DATE: TIME: NEXT DOSE DUE: DATE: TIME: Zoloft (Sertraline Hcl) 25 Mg Tablet 25 Mg PO DAILY LAST DOSE GIVEN: DATE: TIME: NEXT DOSE DUE: DATE: TIME: Patient Instructions Patient Instuctions Stop smoking Home O2, prednisone and Zithromax as directed Follow-up with your doctor this week for recheck RADHA MAYO DO Nov 03, 2017 09:56
--- NOTE | 2017-11-03 10:06 | PDOC3 ---
Discharge Summary Visit Information Admitting Diagnosis: Opened by mistake Final Diagnosis Problems Medical Problems: (1) Dyspnea Status: Acute Brief Hospital Course Allergies Allergies Coded Allergies Type Severity Reaction Last Updated Verified No Known Drug Allergies 11/19/15 No Vital Signs Vital Signs Date Time Temp Pulse Resp B/P (MAP) Pulse Ox O2 Delivery O2 Flow Rate FiO2 11/03/17 05:45 97 Nasal Cannula 1.0 11/03/17 05:07 97.8 65 22 150/58 (88) Lab Results Laboratory Tests Test 11/01/17 16:50 11/01/17 19:56 11/02/17 05:48 11/02/17 07:45 Glucose (Fingerstick) 170 mg/dL (70-99) 138 mg/dL (70-99) 178 mg/dL (70-99) White Blood Count 10.6 x10^3/uL (4.0-11.0) Red Blood Count 3.30 x10^6/uL (3.50-5.40) Hemoglobin 11.9 g/dL (12.0-15.5) Hematocrit 34.0 % (36.0-47.0) Mean Corpuscular Volume 103 fL (79-100) Mean Corpuscular Hemoglobin 36 pg (25-35) Mean Corpuscular Hemoglobin Concent 35 g/dL (31-37) Red Cell Distribution Width 12.3 % (11.5-14.5) Platelet Count 254 x10^3/uL (140-400) Neutrophils (%) (Auto) 90 % (31-73) Lymphocytes (%) (Auto) 7 % (24-48) Monocytes (%) (Auto) 3 % (0-9) Eosinophils (%) (Auto) 0 % (0-3) Basophils (%) (Auto) 0 % (0-3) Neutrophils # (Auto) 9.5 x10^3uL (1.8-7.7) Lymphocytes # (Auto) 0.8 x10^3/uL (1.0-4.8) Monocytes # (Auto) 0.3 x10^3/uL (0.0-1.1) Eosinophils # (Auto) 0.0 x10^3/uL (0.0-0.7) Basophils # (Auto) 0.0 x10^3/uL (0.0-0.2) Sodium Level 137 mmol/L (136-145) Potassium Level 3.9 mmol/L (3.5-5.1) Chloride Level 100 mmol/L (98-107) Carbon Dioxide Level 29 mmol/L (21-32) Anion Gap 8 (6-14) Blood Urea Nitrogen 10 mg/dL (7-20) Creatinine 0.6 mg/dL (0.6-1.0) Estimated GFR (Cockcroft-Gault) 101.0 Glucose Level 175 mg/dL (70-99) Calcium Level 8.7 mg/dL (8.5-10.1) Test 11/02/17 11:34 11/02/17 16:24 11/03/17 05:55 11/03/17 07:42 Glucose (Fingerstick) 176 mg/dL (70-99) 159 mg/dL (70-99) 201 mg/dL (70-99) White Blood Count 9.5 x10^3/uL (4.0-11.0) Red Blood Count 3.49 x10^6/uL (3.50-5.40) Hemoglobin 12.6 g/dL (12.0-15.5) Hematocrit 36.1 % (36.0-47.0) Mean Corpuscular Volume 104 fL (79-100) Mean Corpuscular Hemoglobin 36 pg (25-35) Mean Corpuscular Hemoglobin Concent 35 g/dL (31-37) Red Cell Distribution Width 12.4 % (11.5-14.5) Platelet Count 298 x10^3/uL (140-400) Neutrophils (%) (Auto) 88 % (31-73) Lymphocytes (%) (Auto) 8 % (24-48) Monocytes (%) (Auto) 4 % (0-9) Eosinophils (%) (Auto) 0 % (0-3) Basophils (%) (Auto) 0 % (0-3) Neutrophils # (Auto) 8.3 x10^3uL (1.8-7.7) Lymphocytes # (Auto) 0.8 x10^3/uL (1.0-4.8) Monocytes # (Auto) 0.4 x10^3/uL (0.0-1.1) Eosinophils # (Auto) 0.0 x10^3/uL (0.0-0.7) Basophils # (Auto) 0.0 x10^3/uL (0.0-0.2) Brief Hospital Course Ms. Hernnadez is a 62 old [sex] who presented with [ ] Discharge Information Dischare Medications Current Medications Albuterol/ Ipratropium (Duoneb) 3 ml STK-MED ONCE .ROUTE ; Start 10/31/17 at 19: 38; Stop 10/31/17 at 19:39; Status DC Aspirin (Children'S Aspirin) 324 mg 1X ONCE PO Last administered on 10/31/17at 20:00; Start 10/31/17 at 20:00; Stop 10/31/17 at 20:01; Status DC Lactated Ringer's 1,000 ml @ 100 mls/hr Q10H IV Last administered on at 19:56; Start 10/31/17 at 19:40; Stop 10/31/17 at 21:18; Status DC Methylprednisolone Sodium Succinate (SOLU-Medrol 125MG VIAL) 125 mg 1X ONCE IV Last administered on 10/31/17at 20:01; Start 10/31/17 at 20:00; Stop 10/31/17 at 20:01; Status DC Azithromycin (Zithromax) 500 mg 1X ONCE PO Last administered on 10/31/17at 20: 03; Start 10/31/17 at 20:00; Stop 10/31/17 at 20:01; Status DC Aspirin (Children'S Aspirin) 81 mg STK-MED ONCE .ROUTE ; Start 10/31/17 at 19:49 ; Stop 10/31/17 at 19:50; Status DC Methylprednisolone Sodium Succinate (SOLU-Medrol 125MG VIAL) 125 mg STK-MED ONCE .ROUTE ; Start 10/31/17 at 19:49; Stop 10/31/17 at 19:50; Status DC Azithromycin (Zithromax) 250 mg STK-MED ONCE .ROUTE ; Start 10/31/17 at 19:49; Stop 10/31/17 at 19:51; Status DC Ceftriaxone Sodium 1 gm/ Sodium Chloride 50 ml @ 100 mls/hr 1X ONCE IV ; Start 10/31/17 at 20:00; Stop 10/31/17 at 20:29; Status UNV Ceftriaxone Sodium (Rocephin) 1 gm STK-MED ONCE IV ; Start 10/31/17 at 20:02; Stop 10/31/17 at 20:03; Status DC Sodium Chloride 50 ml @ As Directed STK-MED ONCE .ROUTE ; Start 10/31/17 at 20: 02; Stop 10/31/17 at 20:03; Status DC Ceftriaxone Sodium (Rocephin) 1 gm 1X ONCE IVP Last administered on 10/31/17at 20:13; Start 10/31/17 at 20:15; Stop 10/31/17 at 20:16; Status DC Ondansetron HCl (Zofran) 4 mg PRN Q4HRS PRN IV NAUSEA/VOMITING; Start 10/31/17 at 20:45; Stop 11/01/17 at 20:44; Status DC Albuterol/ Ipratropium (Duoneb) 3 ml RTQID NEB Last administered on 11/02/17at 05:31; Start 11/01/17 at 08:00; Stop 11/02/17 at 07:59; Status DC Methylprednisolone Sodium Succinate (SOLU-Medrol 125MG VIAL) 125 mg DAILY IV Last administered on 11/01/17at 08:16; Start 11/01/17 at 09:00; Stop 11/01/17 at 13:49; Status DC Lactated Ringer's 1,000 ml @ 75 mls/hr Q13H,20M PRN IV SEE COMMENTS Last administered on 11/01/17at 23:09; Start 10/31/17 at 20:45 Aspirin (Children'S Aspirin) 81 mg DAILY PO Last administered on 11/03/17at 08: 51; Start 11/01/17 at 09:00 Ceftriaxone Sodium 1 gm/ Sodium Chloride 50 ml @ 100 mls/hr DAILY IV ; Start at 09:00; Status UNV Azithromycin (Zithromax) 250 mg DAILY PO Last administered on 11/03/17at 08:51; Start 11/01/17 at 09:00 Nitroglycerin (Nitro-Bid Oint) 1 inch TID TP Last administered on 10/31/17at 21: 52; Start 10/31/17 at 21:00; Stop 11/02/17 at 08:47; Status DC Enoxaparin Sodium (Lovenox 60mg Syringe) 50 mg 1X ONCE SQ ; Start 10/31/17 at 21:00; Stop 10/31/17 at 21:01; Status DC Enoxaparin Sodium (Lovenox 60mg Syringe) 50 mg Q12HR SQ Last administered on at 08:16; Start 10/31/17 at 21:30; Stop 11/01/17 at 13:56; Status DC Ceftriaxone Sodium (Rocephin) 1 gm DAILY IVP Last administered on 11/03/17at 08: 53; Start 11/01/17 at 09:00 Acetaminophen (Tylenol) 650 mg PRN Q6HRS PRN PO HEADACHE; Start 10/31/17 at 22: 15 Calcium Carbonate/ Glycine (Tums) 500 mg PRN AFTMEAL PRN PO HEARTBURN / GAS; Start 10/31/17 at 22:15 Sertraline HCl (Zoloft) 25 mg DAILY PO Last administered on 11/03/17at 08:51; Start 11/01/17 at 09:00 Lactobacillus Rhamnosus (Culturelle) 1 cap BID PO Last administered on at 08:51; Start 11/01/17 at 09:00 Insulin Human Lispro (HumaLOG) 0-5 UNITS TIDWMEALS SQ Last administered on 11/03at 08:50; Start 11/01/17 at 17:00 Dextrose 12.5 gm PRN Q15MIN PRN IV SEE COMMENTS; Start 11/01/17 at 12:45 Methylprednisolone Sodium Succinate (SOLU-Medrol 125MG VIAL) 125 mg Q6HRS IV Last administered on 11/02/17at 05:45; Start 11/01/17 at 18:00; Stop 11/02/17 at 12:02; Status DC Albuterol Sulfate (Ventolin) 2.5 mg PRN Q4HRS PRN NEB SHORTNESS OF BREATH; Start 11/01/17 at 14:00 Enoxaparin Sodium (Lovenox 40mg Syringe) 40 mg Q24H SQ Last administered on at 08:50; Start 11/02/17 at 09:00 Albuterol/ Ipratropium (Duoneb) 3 ml RTQID NEB Last administered on 11/03/17at 05:43; Start 11/02/17 at 12:00 Methylprednisolone Sodium Succinate (SOLU-Medrol 125MG VIAL) 125 mg Q8HRS IV Last administered on 11/03/17at 05:25; Start 11/02/17 at 14:00 Active Scripts Active Reported Proair Hfa Inhaler (Albuterol Sulfate) 8.5 Gm Hfa.aer.ad 1 Puff INH PRN Q6HRS PRN LAST DOSE GIVEN: DATE: TIME: NEXT DOSE DUE: DATE: TIME: Tylenol (Acetaminophen) 325 Mg Tablet 650 Mg PO PRN Q6HRS PRN LAST DOSE GIVEN: DATE: TIME: NEXT DOSE DUE: DATE: TIME: Tums (Calcium Carbonate) 200 Mg Tab.chew 200 Mg PO PRN AFTMEAL PRN LAST DOSE GIVEN: DATE: TIME: NEXT DOSE DUE: DATE: TIME: Zoloft (Sertraline Hcl) 25 Mg Tablet 25 Mg PO DAILY LAST DOSE GIVEN: DATE: TIME: NEXT DOSE DUE: DATE: TIME: RADHA MAYO DO Nov 03, 2017 10:06
[2017-11-03 10:20] VITALS: BP 152/65
== END 2017-11-03 11:00 | disposition home or self-care (01) | DRG 189 ==
LOC: ER 19:32 → 1 SOUTH 20:00
PROVIDERS: ADMIT Neuromusculoskeletal Medicine & OMM; ATTEND Neuromusculoskeletal Medicine & OMM
DX: J96.00 Acute respiratory failure, unspecified whether with hypoxia or hypercapnia (principal); E87.1 Hypo-osmolality and hyponatremia; J44.1 Chronic obstructive pulmonary disease with (acute) exacerbation; J44.0 Chronic obstructive pulmonary disease with (acute) lower respiratory infection; J20.9 Acute bronchitis, unspecified; F41.9 Anxiety disorder, unspecified; F17.200 Nicotine dependence, unspecified, uncomplicated; D53.9 Nutritional anemia, unspecified; I10 Essential (primary) hypertension; T38.0X5A Adverse effect of glucocorticoids and synthetic analogues, initial encounter; R73.9 Hyperglycemia, unspecified; Z79.82 Long term (current) use of aspirin; Z79.899 Other long term (current) drug therapy
CPT/HCPCS: 36415; 71046; 71250; 80048; 80076; 80307; 81001; 82553; 82803; 82947; 83036; 83690; 83735; 83880; 84443; 84484; 85007; 85025; 85379; 85610; 85730; 87040; 87070; 87205; 93005; 94618; 94640; 94760; 96361; 96374; 96375; 99406; G0238; J0456; J0696; J1650; J1815; J2930; J7120; J7620; 99285-25; G0479

== ENCOUNTER → 2018-02-05 | Outpatient (CLI) | payer MEDICARE ==
[~2018-02-05] MED LIST: ACET325T9 PO; ALBU8.5H8 INH; CALC200T3 PO; SERT25TA PO
--- NOTE | 2018-02-05 13:53 | CARD ---
MR#: [id number] Date of Study: 02/05/2018 Ordering Physician: JUAN LUGO, Referring Physician: JUAN LUGO, Tech: Geeta Fuentes KALYAN APPROVED REPORT EXAM: Two-dimensional and M-mode echocardiogram with Doppler and color Doppler. Other Information Quality : Technically LimitedHR: 80bpm Rhythm : NSRTechnically limited study due to COPD. INDICATION Pulmonary Hypertention 2D DIMENSIONS RVDd2.0 (2.9-3.5cm)Left Atrium(2D)2.5 (1.6-4.0cm) IVSd0.9 (0.7-1.1cm)Aortic Root(2D)2.6 (2.0-3.7cm) LVDd3.7 (3.9-5.9cm)LVOT Diameter1.8 (1.8-2.4cm) PWd0.7 (0.7-1.1cm)LVDs2.7 (2.5-4.0cm) FS (%) 26.7 %SV31.0 ml LVEF(%)53.0 (>50%) Aortic Valve AoV Peak Demian.124.1cm/sAoV VTI23.9cm AO Peak GR.6.2mmHgLVOT Peak Demian.74.7cm/s LVOT VTI 17.26cmAO Mean GR.3mmHg AZCARIAS (VMAX)1.47no3LIG (VTI)1.84cm2 Mitral Valve MV E Hyzdgqmp90.5cm/sMV E Peak Gr.3mmHg MV DECEL [id number] A Pnzjcqyp19.0cm/s MV E Mean Gr.1mmHgE/A Ratio0.7 MV A [id number] Pulmonary Valve PV Peak Sypuggvu30.9cm/sPV Peak Grad.3mmHg Tricuspid Valve TR P. [id number]/sRAP [id number] TR Peak Gr.32amOsVRZI27roFz LEFT VENTRICLE The left ventricle cavity is small. There is normal left ventricular wall thickness. Left ventricle e jection fraction is normal. The Ejection Fraction is 55-60%. There is normal LV segmental wall motion . Transmitral Doppler flow pattern is Grade I-abnormal relaxation pattern. RIGHT VENTRICLE The right ventricle is normal size. The right ventricle is mildly hypertrophied. The right ventricula r systolic function is normal. ATRIA The left atrium size is normal. The right atrium is mildly dilated. The interatrial septum is intact with no evidence for an atrial septal defect or patent foramen ovale as noted on 2-D or Doppler imagi ng. AORTIC VALVE The aortic valve is probably trileaflet. Doppler and Color Flow revealed no significant aortic regurg itation. There is no significant aortic valvular stenosis. MITRAL VALVE The mitral valve is normal in structure and function. There is no evidence of mitral valve prolapse. There is no mitral valve stenosis. Doppler and Color-flow revealed trace mitral regurgitation. TRICUSPID VALVE The tricuspid valve is normal in structure and function. Doppler and Color Flow revealed moderate tri cuspid regurgitation. There is severe pulmonary hypertension. The PA pressure was estimated at 83 mmH g. There is no tricuspid valve prolapse or vegetation. There is no tricuspid valve stenosis. PULMONIC VALVE Pulmonic valve not well visualized. GREAT VESSELS The aortic root is normal in size. The ascending aorta is normal in size. PERICARDIAL EFFUSION There is no evidence of significant pericardial effusion. Critical Notification Critical Value: No <Conclusion> Left ventricle ejection fraction is normal. The Ejection Fraction is 55-60%. There is normal LV segmental wall motion. Transmitral Doppler flow pattern is Grade I-abnormal relaxation pattern. Trace mitral regurgitation. Moderate tricuspid regurgitation. There is severe pulmonary hypertension. The PA pressure was estimated at 83 mmHg. There is no evidence of significant pericardial effusion. Signed by : Patrick Shay, Electronically Approved : 02/05/2018 13:52:17
== END | disposition home or self-care (01) ==
LOC: ECHO 12:58
PROVIDERS: ATTEND Internal Medicine Cardiovascular Disease
DX: I27.20 Pulmonary hypertension, unspecified (principal); I36.1 Nonrheumatic tricuspid (valve) insufficiency; J44.9 Chronic obstructive pulmonary disease, unspecified
CPT/HCPCS: 93306

== ENCOUNTER 2018-02-08 19:51 | Emergency (ER) | payer MEDICARE ==
[~2018-02-08] VITALS: Ht 162.6 cm; Wt 47.6 kg
--- NOTE | 2018-02-08 20:03 | ED.ADGEN ---
Past History Past Medical History: Anxiety, COPD, Hypertension, Other Past Surgical History: No Surgical History Smoking: Cigarettes Alcohol Use: None Drug Use: None Adult General Chief Complaint Chief Complaint ".. I ve gotten more short of breath.. coughing up green [place] stuff. .. My daughter is sick.. the grand kid is sick... and I have COPD...".." coughing all the time..." HPI HPI Patient is a 62 year old female who presents with above hx and complaints coughing and shortness of breath. She has been exposed to her ill daughter and grandson. Patient denies any fevers. Sometimes subjectively feels hot. Patient has been coughing up discolored sputum. Patient has long history of tobacco use. Has known history of COPD. Patient currently not on antibiotics. Does have adequate bronchodilators at home. No recent travel. Review of Systems Review of Systems Constitutional: Subjective fever or chills [] Eyes: Denies change in visual acuity, redness, or eye pain [] HENT: History of nasal congestion Respiratory: History of cough and shortness of breath [] Cardiovascular: No additional information not addressed in HPI [] GI: Denies abdominal pain, nausea, vomiting, bloody stools or diarrhea [] : Denies dysuria or hematuria [] Musculoskeletal: Denies back pain or joint pain [] Integument: Denies rash or skin lesions [] Neurologic: Denies headache, focal weakness or sensory changes [] Endocrine: Denies polyuria or polydipsia [] All other systems were reviewed and found to be within normal limits, except as documented in this note. Family History Family History Noncontributory Current Medications Current Medications Current Medications Medications (Trade) Dose Ordered Sig/Peyton Start Time Stop Time Status Last Admin Dose Admin Albuterol/ Ipratropium (Duoneb) 3 ml 1X ONCE 02/08/18 20:30 02/08/18 20:31 DC 02/08/18 20:30 3 ML Azithromycin (Zithromax) 500 mg 1X ONCE 02/08/18 22:30 02/08/18 22:31 DC 02/08/18 22:24 500 MG Ceftriaxone Sodium 1 gm/ Sodium Chloride 50 ml @ 100 mls/hr 1X ONCE 02/08/18 23:00 02/08/18 23:29 DC 02/08/18 22:24 100 MLS/HR Ceftriaxone Sodium (Rocephin) 1 gm STK-MED ONCE 02/08/18 22:19 02/08/18 22:20 DC Lactated Ringer's 1,000 ml @ 1,000 mls/hr 1X ONCE 02/08/18 23:00 02/08/18 23:44 DC Methylprednisolone Sodium Succinate (SOLU-Medrol 125MG VIAL) 125 mg 1X ONCE 02/08/18 22:30 02/08/18 22:31 DC 02/08/18 22:24 125 MG Ondansetron HCl (Zofran) 8 mg 1X ONCE 02/08/18 23:15 02/08/18 23:16 DC Sodium Chloride 50 ml @ As Directed STK-MED ONCE 02/08/18 22:19 02/08/18 22:20 DC See nursing for home meds Allergies Allergies Allergies Coded Allergies Type Severity Reaction Last Updated Verified No Known Drug Allergies 11/19/15 No Physical Exam Physical Exam Constitutional: Moderately acute distress, non-toxic appearance. [] HENT: Normocephalic, atraumatic, bilateral external ears normal, oropharynx moist, no oral exudates, nose swollen turbinates and rhinorrhea Eyes: PERRLA, EOMI, conjunctiva normal, no discharge. [] Neck: Normal range of motion, no tenderness, supple, no stridor. [] Cardiovascular: Tachycardia Heart rate regular rhythm, no murmur []regional PVC Lungs & Thorax: Bilateral breath sounds equal at apexes scattered wheezing on auscultation [. In tripod position with ]intercostal retraction.. Abdomen: Bowel sounds normal, soft, no tenderness, no masses, no pulsatile masses. [] Skin: Warm, dry, no erythema, no rash. Poor turgor Back: No tenderness, no CVA tenderness. [] Extremities: No tenderness, no cyanosis, no clubbing, ROM intact, no edema. [] No cording noted Neurologic: Alert and oriented X 3, normal motor function, normal sensory function, no focal deficits noted. [] Psychologic: Affect anxious, judgement normal, mood normal. [] Current Patient Data Vital Signs Vital Signs Date Time Temp Pulse Resp B/P (MAP) Pulse Ox O2 Delivery O2 Flow Rate FiO2 02/08/18 20:37 98.4 108 16 91 Room Air Lab Results Laboratory Tests Test 02/08/18 21:14 02/08/18 21:28 Urine Collection Type Unknown Urine Color Straw Urine Clarity Hazy Urine pH 6.5 Urine Specific [place] <=1.005 Urine Protein Neg (NEG-TRACE) Urine Glucose (UA) Neg mg/dL (NEG) Urine Ketones (Stick) Trace mg/dL (NEG) Urine Blood Neg (NEG) Urine Nitrite Neg (NEG) Urine Bilirubin Neg (NEG) Urine Urobilinogen Dipstick 0.2 mg/dL (0.2 mg/dL) Urine Leukocyte Esterase Small (NEG) Urine RBC Occ /HPF (0-2) Urine WBC 1-4 /HPF (0-4) Urine Squamous Epithelial Cells Few /LPF Urine Bacteria Few /HPF (0-FEW) Urine Opiates Screen Neg (NEG) Urine Methadone Screen Neg (NEG) Urine Barbiturates Neg (NEG) Urine Phencyclidine Screen Neg (NEG) Urine Amphetamine/Methamphetamine Neg (NEG) Urine Benzodiazepines Screen Neg (NEG) Urine Cocaine Screen Neg (NEG) Urine Cannabinoids Screen Neg (NEG) Urine Ethyl Alcohol Neg (NEG) White Blood Count 15.2 x10^3/uL (4.0-11.0) H Red Blood Count 4.31 x10^6/uL (3.50-5.40) Hemoglobin 15.0 g/dL (12.0-15.5) Hematocrit 44.6 % (36.0-47.0) Mean Corpuscular Volume 104 fL (79-100) H Mean Corpuscular Hemoglobin 35 pg (25-35) Mean Corpuscular Hemoglobin Concent 34 g/dL (31-37) Red Cell Distribution Width 13.0 % (11.5-14.5) Platelet Count 387 x10^3/uL (140-400) Neutrophils (%) (Auto) 86 % (31-73) H Lymphocytes (%) (Auto) 6 % (24-48) L Monocytes (%) (Auto) 8 % (0-9) Eosinophils (%) (Auto) 0 % (0-3) Basophils (%) (Auto) 0 % (0-3) Neutrophils # (Auto) 13.1 x10^3uL (1.8-7.7) H Lymphocytes # (Auto) 0.9 x10^3/uL (1.0-4.8) L Monocytes # (Auto) 1.2 x10^3/uL (0.0-1.1) H Eosinophils # (Auto) 0.0 x10^3/uL (0.0-0.7) Basophils # (Auto) 0.0 x10^3/uL (0.0-0.2) Segmented Neutrophils % 88 % (35-66) H Band Neutrophils % 3 % (0-9) Lymphocytes % 3 % (24-48) L Monocytes % 4 % (0-10) Eosinophils % 2 % (0-5) Platelet Estimate Adequate (ADEQUATE) Prothrombin Time 10.3 SEC (9.4-11.4) Prothrombin Time INR 1.0 (0.9-1.1) PTT 30 SEC (23-33) D-Dimer (Janey) 0.32 mg/L (0.00-0.50) Sodium Level 130 mmol/L (136-145) L Potassium Level 3.8 mmol/L (3.5-5.1) Chloride Level 94 mmol/L (98-107) L Carbon Dioxide Level 28 mmol/L (21-32) Anion Gap 8 (6-14) Blood Urea Nitrogen 8 mg/dL (7-20) Creatinine 0.5 mg/dL (0.6-1.0) L Estimated GFR (Cockcroft-Gault) 124.6 Glucose Level 119 mg/dL (70-99) H Calcium Level 9.0 mg/dL (8.5-10.1) Magnesium Level 2.1 mg/dL (1.8-2.4) Total Bilirubin 0.9 mg/dL (0.2-1.0) Direct Bilirubin 0.2 mg/dL (0.0-0.2) Aspartate Amino Transferase (AST) 19 U/L (15-37) Alanine Aminotransferase (ALT) 42 U/L (14-59) Alkaline Phosphatase 92 U/L (46-116) Creatine Kinase 53 U/L (26-192) Troponin I Quantitative < 0.017 ng/mL (0-0.055) TK-Qsf-C-Type Natriuretic Peptide 100 pg/mL (0-124) Total Protein 6.9 g/dL (6.4-8.2) Albumin 3.7 g/dL (3.4-5.0) Lipase 117 U/L (73-393) Influenza Type A (Rapid) Negative (NEGATIVE) Influenza Type B (Rapid) Negative (NEGATIVE) Group A Streptococcus Rapid Negative (NEGATIVE) EKG EKG My interpretation of EKG shows a sinus tachycardia rhythm at[ventricular rate of 117. There is interventricular ventricular conduction delay. Left [place] deviation. Strain pattern. Radiology/Procedures Radiology/Procedures My interpretation of chest x-ray shows flattened diaphragm COPD/emphysema findings.[] Course & Med Decision Making Course & Med Decision Making Pertinent Labs and Imaging studies reviewed. (See chart for details). Begged patient to consider admission, daughter also requested she stay. Pt. refused. Pt. reports she will return if she felt worse. Patient time of discharge no longer had marked wheezing. Sats adequate on room air. Still mildly tachycardic. Patient started on his Zithromax 250 daily. Prednisone 50 mg daily. Patient to use home albuterol as previous directed. Patient return if any concerns.. [] Final Impression Final Impression 1. COPD -exacerbation 2. Leukocytosis 3. Tachycardia Dragon Disclaimer Dragon Disclaimer This electronic medical record was generated, in whole or in part, using a voice recognition dictation system. JAI HAYWOOD MD Feb 08, 2018 20:03
[2018-02-08] MEDS ORDERED: IV RINGERS SOLUTION,LACTATED 1,000 ML IV SCH (20:30)
[2018-02-08] MEDS ORDERED: IPRATRPIUM/ALBUTEROL 0.5/2.5MG 3 ML NEBU. NEB ONE (20:30)
[2018-02-08 20:37] VITALS: BP 134/75
--- NOTE | 2018-02-08 21:41 | RAD ---
CHEST PA LATERAL CLINICAL INDICATION: SHORT OF AIR, FEVER, PRODUCTIVE COUGH, SMOKER COMPARISON: 10/31/2017 FINDINGS: Heart is normal in size. Lungs are hyperinflated with flattening of diaphragm and increased retrosternal space. Diffuse increased prominence of the interstitium noted without focal consolidation. No pneumothorax or pleural effusion. Visualized bony thorax is within normal limits. IMPRESSION: Findings of COPD with superimposed atypical/viral infection not ruled out. Electronically signed by: Taras Dawson DO (02/08/2018 9:37 PM) [facility]
[2018-02-08 22:01] LABS: BASO % 0 % (0-3); EOS % 0 % (0-3); HEMATOCRIT 44.6 % (36.0-47.0); LYMPH # 0.9 x10^3/uL (1.0-4.8); LYMPH % 6 % (24-48); MEAN CORPUSCULAR HEMOGLOBIN 35 pg (25-35); MEAN CORPUSCULAR HGB CONC 34 g/dL (31-37); MEAN CORPUSCULAR VOLUME 104 fL (79-100); MONO # 1.2 x10^3/uL (0.0-1.1); MONO % 8 % (0-9); NEUT # 13.1 x10^3uL (1.8-7.7); NEUT % 86 % (31-73); PLATELET COUNT 387 x10^3/uL (140-400); RED BLOOD COUNT 4.31 x10^6/uL (3.50-5.40); WHITE BLOOD COUNT 15.2 x10^3/uL (4.0-11.0)
--- NOTE | 2018-02-08 22:02 | EKG ---
[address] [address] Test Date: 2018-02-08 Test Time: 21:59:39 Pat Name: BRITTANEY SANDERSON Department: Room: Gender: F Rn Camp: : 1955 Requested By: JAI HAYWOOD Order Number: [id number] Reading MD: Moshe Palafox MD Measurements Intervals [place] Rate: 117 P: 0 KS: 80 QRS: -90 QRSD: 86 T: 38 QT: 322 QTc: 454 Interpretive Statements SINUS TACHYCARDIA PAC'S LAFB INFERIOR INFARCT - OLD Electronically Signed On 02-11-2018 8:43:02 [place] by Moshe Palafox MD
[2018-02-08] MEDS ORDERED: AZIT250T PO (22:04)
[2018-02-08] MEDS ORDERED: PRED50TA PO (22:04)
[2018-02-08 22:12] LABS: ALBUMIN 3.7 g/dL (3.4-5.0); CREATININE 0.5 mg/dL (0.6-1.0); DIRECT BILIRUBIN 0.2 mg/dL (0.0-0.2); GFR 124.6; MAGNESIUM 2.1 mg/dL (1.8-2.4); POTASSIUM 3.8 mmol/L (3.5-5.1); TOTAL BILIRUBIN 0.9 mg/dL (0.2-1.0); TOTAL PROTEIN 6.9 g/dL (6.4-8.2)
[2018-02-08 22:19] LABS: INFLUENZA A PATIENT NEGATIVE (NEGATIVE); INFLUENZA B PATIENT NEGATIVE (NEGATIVE)
[2018-02-08] MEDS ORDERED: IV NORMAL SALINE 50ML 50 ML ONE (22:19)
[2018-02-08] MEDS ORDERED: cefTRIAXone SODIUM 1 GM VIAL IV ONE (22:19)
[2018-02-08 22:30] LABS: BILIRUBIN,URINE NEG (NEG); CLARITY,URINE HAZY; COLOR,URINE STRAW; GLUCOSE,URINE NEG (NEG)
[2018-02-08] MEDS ORDERED: AZITHROMYCIN 250 MG TABLET. PO ONE (22:30)
[2018-02-08] MEDS ORDERED: methylPREDNISolone SOD SUCC PF 125 MG/2 ML VIAL. IV ONE (22:30)
[2018-02-08 22:31] LABS: BACTERIA,URINE FEW /HPF (0-FEW); NITRITE,URINE NEG (NEG); RBC,URINE OCC /HPF (0-2); SQUAMOUS EPITHELIAL CELL,UR FEW /LPF; UROBILINOGEN,URINE 0.2 mg/dL (0.2 mg/dL)
[2018-02-08 22:33] LABS: BARBITURATES NEG (NEG); BENZODIAZEPINES NEG (NEG); CANNABINOIDS NEG (NEG); COCAINE NEG (NEG); METHADONE NEG (NEG); OPIATES NEG (NEG); PHENCYCLIDINE NEG (NEG)
[2018-02-08 22:37] LABS: AMPHETAMINE/METHAMPHETAMINE NEG (NEG)
[2018-02-08 22:49] LABS: % BANDS 3 % (0-9); % EOS 2 % (0-5); % LYMPHS 3 % (24-48); % MONOS 4 % (0-10); % SEGS 88 % (35-66)
[2018-02-08 22:50] LABS: PLT ESTIMATE ADEQUATE (ADEQUATE)
[2018-02-08] MEDS ORDERED: IV RINGERS SOLUTION,LACTATED 1,000 ML IV ONE (23:00)
[2018-02-08] MEDS ORDERED: ONDANSETRON PF 4 MG/2 ML VIAL. IV ONE (23:15)
== END 2018-02-08 23:35 | disposition home or self-care (01) ==
LOC: ER 19:51
DX: J44.1 Chronic obstructive pulmonary disease with (acute) exacerbation (principal); D72.829 Elevated white blood cell count, unspecified; R00.0 Tachycardia, unspecified; F41.9 Anxiety disorder, unspecified; I10 Essential (primary) hypertension; F17.210 Nicotine dependence, cigarettes, uncomplicated
CPT/HCPCS: 36415; 71046; 80048; 80076; 80307; 81001; 82550; 83690; 83735; 83880; 84443; 84484; 85007; 85025; 85379; 85610; 85730; 87070; 87086; 87804; 87880; 93005; 94640; 96365; 96375; 99284; J0456; J0696; J2930; J7120; J7620

== ENCOUNTER 2018-09-11 02:24 | Emergency (ER) | payer MEDICARE ==
[~2018-09-11] VITALS: Ht 162.6 cm; Wt 48.5 kg
[~2018-09-11 02:24] MED LIST changes: +ALBU2.5V8 INH; -ALBU8.5H8 INH; +AZIT250T PO; +PRED50TA PO
[2018-09-11] MEDS ORDERED: methylPREDNISolone SOD SUCC PF 125 MG/2 ML VIAL. IV ONE (03:00)
[2018-09-11 03:01] LABS: BGAS PH 7.42 (7.35-7.45)
--- NOTE | 2018-09-11 03:02 | RAD ---
Chest radiograph 09/11/2018 2:25 AM INDICATION: Shortness of air, history of COPD COMPARISON: February 08, 2018 TECHNIQUE: Portable upright frontal view of the chest is provided. FINDINGS: The cardiomediastinal silhouette is within normal limits. There are no pleural effusions. There is no pulmonary vascular congestion. There is no pneumothorax. Chronic interstitial changes are present. Biapical pleural-parenchymal scarring is noted. No significant osseous abnormality is identified. IMPRESSION: COPD changes without acute cardiopulmonary process. Electronically signed by: Carisa Bueno MD (09/11/2018 2:59 AM) [id number]
--- NOTE | 2018-09-11 03:09 | ED.ADGEN ---
Past History Past Medical History: Anxiety, COPD, Hypertension, Other Past Surgical History: No Surgical History Smoking: Cigarettes Alcohol Use: None Drug Use: None Adult General Chief Complaint Chief Complaint Respiratory distress HPI HPI Patient is a 63-year-old female with history of COPD, chronic respiratory failure presents with acute shortness of breath. Patient's symptoms gradually progressed over the past 2 days. Patient reports green productive sputum with increased difficulty breathing. patient has been using her albuterol inhalers 3 times daily. On EMS arrival, the patient was satting 82% on room air. Patient given a breathing treatment and placed on oxygen with O2 saturation climbing up in the mid 90s.denies fever chills or sweats, no nausea vomiting or sweats. Chest tightness but denies chest pain. Denies increased leg pain and swelling. No history of DVT or PE. Patient rarely smokes a pack a half a day and has a 70+-pack-year history.[] Review of Systems Review of Systems Review symptoms as . All other review symptoms are negative. All other systems were reviewed and found to be within normal limits, except as documented in this note. Current Medications Current Medications Current Medications Medications (Trade) Dose Ordered Sig/Peyton Start Time Stop Time Status Last Admin Dose Admin Albuterol Sulfate (Ventolin) 5 mg 1X ONCE 09/11/18 03:15 09/11/18 03:16 09/11/18 02:58 5 MG Ipratropium [place] (Atrovent) 0.5 mg 1X ONCE 09/11/18 03:15 09/11/18 03:16 09/11/18 02:58 0.5 MG Methylprednisolone Sodium Succinate (SOLU-Medrol 125MG VIAL) 62.5 mg 1X ONCE 09/11/18 03:00 09/11/18 03:01 DC Allergies Allergies Allergies Coded Allergies Type Severity Reaction Last Updated Verified No Known Drug Allergies 11/19/15 No Physical Exam Physical Exam Constitutional: Well developed, well nourished, moderate respiratory distress [] HENT: Normocephalic, atraumatic, bilateral external ears normal, oropharynx moist, no oral exudates, nose normal. [] Eyes: PERRLA, EOMI, conjunctiva normal, no discharge. [] Neck: Normal range of motion, no tenderness, supple, no stridor. [] Cardiovascular:Heart rate regular rhythm, no murmur, negative Homans signs. [] Lungs & Thorax: respirations labored,pursed lip breathing with long expiratory phase, sitting upright , tachypnea respiratory rate in 30s, diminished coarse breath sounds bilaterally. No wheezes or rales appreciated.speaks in 5-7 word sentences. [] Abdomen: Bowel sounds normal, soft, no tenderness, no masses, no pulsatile masses. [] Skin: Warm, dry, no erythema, no rash. [] Back: No tenderness, no CVA tenderness. [] Extremities: No tenderness, no edema. [] Neurologic: Alert and oriented X 3, normal motor function, normal sensory function, no focal deficits noted. [] Psychologic: Affect normal, judgement normal, mood normal. [] Current Patient Data Vital Signs Vital Signs Date Time Temp Pulse Resp B/P (MAP) Pulse Ox O2 Delivery O2 Flow Rate FiO2 09/11/18 02:59 91 Nasal Cannula 2.0 EKG EKG EKG: Sinus tach, rate 105, no acute ST-T wave changes.[] Radiology/Procedures Radiology/Procedures [Chest x-ray: chronic changes,No obvious pulmonary infiltrate on preliminary ED review] Course & Med Decision Making Course & Med Decision Making Pertinent Labs and Imaging studies reviewed. (See chart for details) [patient with acute respiratory distress with COPD exacerbation. Patient given DuoNeb, steroids, placed on oxygen bedside stand. Symptoms are improving.patient appears more comfortable with relaxed breathing. Will admit to Dr. Marte service.] Final Impression Final Impression [Acute respiratory distress Acute bronchitis COPD exacerbation] Nicci Disclaimer Dragon Disclaimer This electronic medical record was generated, in whole or in part, using a voice recognition dictation system. JACKY RUTH DO Sep 11, 2018 03:09
[2018-09-11] MEDS ORDERED: IV NORMAL SALINE 1,000ML 1,000 ML IV SCH (03:10)
[2018-09-11 03:12] LABS: ALBUMIN 3.8 g/dL (3.4-5.0); ALBUMIN/GLOBULIN RATIO 1.3 (1.0-1.7); CALCIUM 9.5 mg/dL (8.5-10.1); CREATININE 0.4 mg/dL (0.6-1.0); GFR 160.7; TOTAL BILIRUBIN 1.3 mg/dL (0.2-1.0); TOTAL PROTEIN 6.7 g/dL (6.4-8.2)
[2018-09-11] MEDS ORDERED: ONDANSETRON PF 4 MG/2 ML VIAL. IV PRN (03:15)
[2018-09-11] MEDS ORDERED: ALBUTEROL SULFATE 2.5 MG/3 ML NEBU. NEB ONE (03:15)
[2018-09-11] MEDS ORDERED: IPRATROPIUM BROMIDE 0.5 MG/2.5 ML NEBU. NEB ONE (03:15)
[2018-09-11 03:22] LABS: BASO # 0.1 x10^3/uL (0.0-0.2); BASO % 0 % (0-3); EOS % 0 % (0-3); HEMATOCRIT 40.9 % (36.0-47.0); HEMOGLOBIN 14.4 g/dL (12.0-15.5); LYMPH # 1.1 x10^3/uL (1.0-4.8); LYMPH % 6 % (24-48); MEAN CORPUSCULAR HEMOGLOBIN 36 pg (25-35); MEAN CORPUSCULAR HGB CONC 35 g/dL (31-37); MEAN CORPUSCULAR VOLUME 103 fL (79-100); MONO # 1.5 x10^3/uL (0.0-1.1); MONO % 8 % (0-9); NEUT # 16.1 x10^3uL (1.8-7.7); NEUT % 86 % (31-73); PLATELET COUNT 337 x10^3/uL (140-400); RED CELL DISTRIBUTION WIDTH 12.3 % (11.5-14.5); WHITE BLOOD COUNT 18.8 x10^3/uL (4.0-11.0)
[2018-09-11] MEDS ORDERED: DOXYCYCLINE HYCLATE 100 MG VIAL IV ONE (03:25)
[2018-09-11] MEDS ORDERED: IV DEXTROSE 5% 100 ML IV ONE (03:25)
[2018-09-11] MEDS ORDERED: NICOTINE 21MG PATCH. TD ONE (03:30)
[2018-09-11] MEDS ORDERED: DOXYCYCLINE HYCLATE 100 MG in IV DEXTROSE 5% 100 ML IV ONE (03:30)
[2018-09-11 03:41] LABS: % BANDS 4 % (0-9); % LYMPHS 6 % (24-48); % MONOS 10 % (0-10); % SEGS 80 % (35-66); PLT ESTIMATE ADEQUATE (ADEQUATE)
[2018-09-11] MEDS ORDERED: SUCCINYLCHOLINE 200 MG/10 ML VIAL. ONE (05:48)
[2018-09-11] MEDS ORDERED: ETOMIDATE 40 MG/20 ML VIAL. IV ONE (06:00)
[2018-09-11] MEDS ORDERED: KETAMINE HCL 500 MG/10 ML VIAL. ONE (06:00)
[2018-09-11] MEDS ORDERED: MIDAZOLAM HCL PF 5 MG/5 ML VIAL. ONE (06:00)
[2018-09-11] MEDS ORDERED: ROCURONIUM 50 MG/5 ML VIAL. ONE (06:00)
[2018-09-11] MEDS ORDERED: methylPREDNISolone SOD SUCC PF 125 MG/2 ML VIAL. IV SCH (06:00)
[2018-09-11] MEDS ORDERED: PROPOFOL 10,000 MCG/ML (20ML) VIAL IV ONE ×2 (06:00→07:30)
[2018-09-11 06:02] VITALS: BP 175/70
[2018-09-11] MEDS ORDERED: PROPOFOL 100 ML IV ONE (06:04)
[2018-09-11] MEDS ORDERED: IV NORMAL SALINE 500ML 500 ML ONE (06:42)
[2018-09-11 07:03] LABS: BGAS PH 7.31 (7.35-7.45)
[2018-09-11] MEDS ORDERED: KETAMINE HCL 500 MG/10 ML VIAL. IV ONE (07:30)
[2018-09-11] MEDS ORDERED: MIDAZOLAM HCL PF 5 MG/5 ML VIAL. IV ONE ×2 (07:30→07:45)
--- NOTE | 2018-09-11 07:43 | RAD ---
Portable chest, 09/11/2018, 6:10 AM: HISTORY: Intubation Comparison is made to the study of earlier the same day at 2:51 AM. An ET tube has been inserted with its tip located well above the will. The heart size is normal. There are mildly prominent pulmonary markings in an interstitial pattern which are unchanged and likely due to fibrosis. No pulmonary consolidation is seen. There is no evidence of pleural fluid. IMPRESSION: 1. An ET tube has been inserted in satisfactory position. 2. No other significant change since earlier in the day.
[2018-09-11] MEDS ORDERED: IPRATRPIUM/ALBUTEROL 0.5/2.5MG 3 ML NEBU. NEB SCH (08:00)
--- NOTE | 2018-09-11 08:21 | EKG ---
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
--- NOTE | 2018-09-11 08:24 | RAD ---
Examination: PORTABLE CHEST 1V History: NG tube placement Comparison/Correlation: 09/11/2018 AP view of the chest Findings: Portable semiupright frontal view of the chest was obtained. Endotracheal tube terminates 3.2 cm from the will. Enteric tube terminates approximately 2.2 cm past the gastroesophageal junction. Heart size is normal. Pulmonary hyperinflation suggested. Mild interstitial thickening of the lung ochoa is unchanged. No pneumothorax. Bony structures are grossly unremarkable. Impression: Enteric tube is identified just past the gastroesophageal junction. Consider further advancement by at least additional 7 cm if not artery performed. No focal infiltrate. Electronically signed by: Fercho Ruiz MD (09/11/2018 8:21 AM) [id number]
== END 2018-09-11 07:20 | disposition short-term general hospital (02) ==
LOC: ER 02:24
DX: J20.9 Acute bronchitis, unspecified (principal); J44.0 Chronic obstructive pulmonary disease with (acute) lower respiratory infection; J44.1 Chronic obstructive pulmonary disease with (acute) exacerbation; R06.03 Acute respiratory distress; F41.9 Anxiety disorder, unspecified; I10 Essential (primary) hypertension; F17.210 Nicotine dependence, cigarettes, uncomplicated
CPT/HCPCS: 31500; 36415; 36600; 71045; 80053; 82803; 83880; 84484; 85007; 85025; 87040; 93005; 94640; 94660; 96365; 96366; 96375; 99285; J2250; J2704; J2930; J3490; J7613; J7644; 94002; J7030

== ENCOUNTER → 2018-12-26 | Outpatient (CLI) | payer MEDICARE ==
--- NOTE | 2018-12-26 12:40 | RAD ---
EXAM: CT Chest without IV contrast CLINICAL HISTORY: Follow-up lung nodule, smoker COMPARISON: CT chest 11/01/2017, 05/11/2017.. TECHNIQUE: CT of the chest without intravenous contrast. Axial, coronal and sagittal reformatted images were generated. ---PQRS compliance statement - One or more of the following individualized dose reduction techniques were utilized for this study: 1. Automated exposure control 2. Adjustment of the mA and/or kV according to patient size 3. Use of iterative reconstruction technique--- FINDINGS: Lack of intravenous contrast limits evaluation of solid organs, vasculature, and lymph nodes. Chest: Heart is not enlarged. Coronary artery and aortic root calcifications are seen. No pericardial effusion. No pleural effusion or pneumothorax. Evaluation for lymphadenopathy limited on this noncontrast examination. Within these constraints, no mediastinal or hilar lymphadenopathy. No axillary lymphadenopathy. Bilateral emphysematous changes are seen. A 1.1 cm spiculated right apical lung nodule is seen, previously measured 0.8 cm. A 0.9 cm left lower lobe lung nodule is stable (series 2 image 65). No new lung nodule seen. Visualized Upper abdomen: Upper abdomen is unremarkable. Bones: Osseous structures are grossly unchanged. Mild height loss of several lower vertebral bodies grossly stable to 11/01/2017. IMPRESSION: Spiculated right apical lung nodule measures 1.1 cm, increased in size to 11/01/2017 when it measured 8 mm. Further evaluation with PET/CT or biopsy is recommended. Within the constraints of noncontrast examination, no thoracic lymphadenopathy.. Electronically signed by: John Beltran MD (12/26/2018 12:37 PM) [facility]
== END | disposition home or self-care (01) ==
LOC: CT 10:44
PROVIDERS: ATTEND Internal Medicine Pulmonary Disease
DX: R91.1 Solitary pulmonary nodule (principal); J43.9 Emphysema, unspecified; F17.200 Nicotine dependence, unspecified, uncomplicated
CPT/HCPCS: 71250

== ENCOUNTER 2019-02-22 15:06 | Inpatient (IN) | payer MEDICARE ==
[~2019-02-22] VITALS: Ht 162.6 cm; Wt 47.7 kg
[2019-02-22] MEDS ORDERED: IPRATRPIUM/ALBUTEROL 0.5/2.5MG 3 ML NEBU. ONE (15:11)
[2019-02-22] MEDS ORDERED: methylPREDNISolone SOD SUCC PF 125 MG/2 ML VIAL. IV ONE (15:15)
[2019-02-22] MEDS ORDERED: IPRATRPIUM/ALBUTEROL 0.5/2.5MG 3 ML NEBU. NEB ONE (15:15)
[2019-02-22 15:34] LABS: BASO # 0.1 x10^3/uL (0.0-0.2); BASO % 0 % (0-3); EOS % 0 % (0-3); HEMATOCRIT 42.2 % (36.0-47.0); HEMOGLOBIN 14.9 g/dL (12.0-15.5); LYMPH % 6 % (24-48); MEAN CORPUSCULAR HEMOGLOBIN 35 pg (25-35); MEAN CORPUSCULAR HGB CONC 35 g/dL (31-37); MEAN CORPUSCULAR VOLUME 100 fL (79-100); MONO # 1.3 x10^3/uL (0.0-1.1); MONO % 9 % (0-9); NEUT % 85 % (31-73); PLATELET COUNT 334 x10^3/uL (140-400); RED BLOOD COUNT 4.21 x10^6/uL (3.50-5.40); RED CELL DISTRIBUTION WIDTH 12.5 % (11.5-14.5); WHITE BLOOD COUNT 15.4 x10^3/uL (4.0-11.0)
--- NOTE | 2019-02-22 15:52 | RAD ---
CHEST AP ONLY Clinical Indication: Shortness of breath Comparison: 09/11/2018 portable chest x-ray exam . Findings: Portable frontal view chest exam was performed. Pulmonary hyperinflation is present. The cardiomediastinal silhouette is normal. Linear atelectasis or scarring at the right lower perihilar region extends nearly to the lateral pleural region.. There is no pneumothorax. No definite pleural effusion is appreciated. No acute bone abnormality. IMPRESSION: Right lower perihilar scarring or atelectasis in the interval. Follow-up to resolution recommended. COPD. Electronically signed by: Fercho Ruiz MD (02/22/2019 3:49 PM) [facility]
[2019-02-22 15:54] LABS: ALBUMIN 3.3 g/dL (3.4-5.0); ALBUMIN/GLOBULIN RATIO 0.8 (1.0-1.7); CALCIUM 8.9 mg/dL (8.5-10.1); CREATININE 0.5 mg/dL (0.6-1.0); GFR 124.2; POTASSIUM 3.7 mmol/L (3.5-5.1); TOTAL BILIRUBIN 0.9 mg/dL (0.2-1.0); TOTAL PROTEIN 7.3 g/dL (6.4-8.2)
[2019-02-22 16:24] LABS: INFLUENZA A PATIENT NEGATIVE (NEGATIVE); INFLUENZA B PATIENT NEGATIVE (NEGATIVE)
[2019-02-22] MEDS ORDERED: cefTRIAXone SODIUM 1 GM VIAL ONE (16:28)
[2019-02-22] MEDS ORDERED: IV NORMAL SALINE 50ML 50 ML ONE (16:28)
--- NOTE | 2019-02-22 16:33 | PHYS DOC ---
Past History Past Medical History: COPD Past Surgical History: No Surgical History Smoking: Cigarettes Alcohol Use: None Drug Use: None Adult General Chief Complaint Chief Complaint: SHORTNESS OF BREATH HPI HPI Patient is a 63 old female presenting with chief complaint of shortness of breath increasing over the last few days cough with yellow sputum sometimes feels warm she got a Z-Gaudencio a couple weeks ago and was doing better until last couple of days. Not on home oxygen at this time although according to daughter she has qualified for it in the past back in August she was admitted and intubated for COPD Review of Systems Review of Systems Constitutional: Eyes: Denies change in visual acuity, redness, or eye pain [] GI: Denies abdominal pain, nausea, vomiting, bloody stools or diarrhea [] : Denies dysuria or hematuria [] Musculoskeletal: Denies back pain or joint pain [] Integument: Denies rash or skin lesions [] Neurologic: Denies headache, focal weakness or sensory changes [] Endocrine: Denies polyuria or polydipsia [] All other systems were reviewed and found to be within normal limits, except as documented in this note. Current Medications Current Medications Current Medications Medications (Trade) Dose Ordered Sig/Peyton Start Time Stop Time Status Last Admin Dose Admin Albuterol/ Ipratropium (Duoneb) 3 ml 1X ONCE 02/22/19 15:15 02/22/19 15:19 DC 02/22/19 15:16 3 ML Ceftriaxone Sodium 1 gm/ Sodium Chloride 50 ml @ 100 mls/hr 1X ONCE 02/22/19 16:30 02/22/19 16:59 Levofloxacin/ Dextrose 150 ml @ 100 mls/hr 1X ONCE 02/22/19 16:30 02/22/19 17:59 Methylprednisolone Sodium Succinate (SOLU-Medrol 125MG VIAL) 125 mg 1X ONCE 02/22/19 15:15 02/22/19 15:19 DC 02/22/19 15:18 125 MG Allergies Allergies Allergies Coded Allergies Type Severity Reaction Last Updated Verified No Known Drug Allergies 11/19/15 No Physical Exam Physical Exam Constitutional: Well developed, UNDER nourished, no acute distress, non-toxic appearance. [] HENT: Normocephalic, atraumatic, bilateral external ears normal, oropharynx tracie st, no oral exudates, nose normal. [] Eyes: PERRLA, EOMI, conjunctiva normal, no discharge. [] Neck: Normal range of motion, no tenderness, supple, no stridor. [] Cardiovascular:Heart rate regular rhythm, no murmur [] Lungs & Thorax: WHEEZING AND RHONCHI THROUGHOUT MORE ON THE RIGHT Abdomen: Bowel sounds normal, soft, no tenderness, no masses, no pulsatile masses. [] Skin: Warm, dry, no erythema, no rash. [] Back: No tenderness, no CVA tenderness. [] Extremities: No tenderness, no cyanosis, no clubbing, ROM intact, no edema. [] Neurologic: Alert and oriented X 3, normal motor function, normal sensory function, no focal deficits noted. [] Psychologic: Affect normal, judgement normal, mood normal. [] Current Patient Data Vital Signs Vital Signs Date Time Temp Pulse Resp B/P (MAP) Pulse Ox O2 Delivery O2 Flow Rate FiO2 02/22/19 15:54 102 38 137/107 (117) 96 Nasal Cannula 2.0 02/22/19 15:24 97.8 Lab Results Laboratory Tests Test 02/22/19 15:13 White Blood Count 15.4 x10^3/uL (4.0-11.0) H Red Blood Count 4.21 x10^6/uL (3.50-5.40) Hemoglobin 14.9 g/dL (12.0-15.5) Hematocrit 42.2 % (36.0-47.0) Mean Corpuscular Volume 100 fL (79-100) Mean Corpuscular Hemoglobin 35 pg (25-35) Mean Corpuscular Hemoglobin Concent 35 g/dL (31-37) Red Cell Distribution Width 12.5 % (11.5-14.5) Platelet Count 334 x10^3/uL (140-400) Neutrophils (%) (Auto) 85 % (31-73) H Lymphocytes (%) (Auto) 6 % (24-48) L Monocytes (%) (Auto) 9 % (0-9) Eosinophils (%) (Auto) 0 % (0-3) Basophils (%) (Auto) 0 % (0-3) Neutrophils # (Auto) 13.0 x10^3uL (1.8-7.7) H Lymphocytes # (Auto) 1.0 x10^3/uL (1.0-4.8) Monocytes # (Auto) 1.3 x10^3/uL (0.0-1.1) H Eosinophils # (Auto) 0.0 x10^3/uL (0.0-0.7) Basophils # (Auto) 0.1 x10^3/uL (0.0-0.2) Platelet Estimate Pending Sodium Level 126 mmol/L (136-145) L Potassium Level 3.7 mmol/L (3.5-5.1) Chloride Level 88 mmol/L (98-107) L Carbon Dioxide Level 26 mmol/L (21-32) Anion Gap 12 (6-14) Blood Urea Nitrogen 3 mg/dL (7-20) L Creatinine 0.5 mg/dL (0.6-1.0) L Estimated GFR (Cockcroft-Gault) 124.2 BUN/Creatinine Ratio 6 (6-20) Glucose Level 126 mg/dL (70-99) H Lactic Acid Level 1.6 mmol/L (0.4-2.0) Calcium Level 8.9 mg/dL (8.5-10.1) Total Bilirubin 0.9 mg/dL (0.2-1.0) Aspartate Amino Transferase (AST) 25 U/L (15-37) Alanine Aminotransferase (ALT) 27 U/L (14-59) Alkaline Phosphatase 77 U/L (46-116) Troponin I Quantitative < 0.017 ng/mL (0-0.055) GF-Lfl-D-Type Natriuretic Peptide 149 pg/mL (0-124) H Total Protein 7.3 g/dL (6.4-8.2) Albumin 3.3 g/dL (3.4-5.0) L Albumin/Globulin Ratio 0.8 (1.0-1.7) L EKG EKG []SINUS TACH RATE 107 NO STEMI NO ISEHCMIA Radiology/Procedures Radiology/Procedures [] Impressions: RML PNA Course & Med Decision Making Course & Med Decision Making Pertinent Labs and Imaging studies reviewed. (See chart for details) []COPD IN THE ER PT SAT 84 RA CAME UP TO 96-8 ON 2l PATEINT LOOKED MUCH BETTERK, INITIALLY WAS RETRACTING BUT THIS IMPROVED WITH SUPPLEMENTAL OXYGEN NOTED HYPONATREMIA, MAINTENANCE FLUIDS ORDERED CXR SHOWS PNA D/W [place] FOR ADMIT NOTED PRIOR HX BUT AT THIS POINT THE PATIENT APPEARS MORE STABLE I THINK SHE CAN BE ADMITTED HERE LEVAQUIN/CTX ORDERED DUONEBS SOLUMEDROL PT AND DAUGHTER AGREEABLE Dragon Disclaimer Dragon Disclaimer This electronic medical record was generated, in whole or in part, using a voice recognition dictation system. Departure Departure: Impression: Primary Impression: Hyponatremia Additional Impressions: Acute respiratory failure with hypoxemia Pneumonia Disposition: ADMITTED INPATIENT Admitting Physician: Elsa Marte Condition: STABLE Referrals: [facility] FREEMAN APRN (PCP) Problem Qualifiers ZULEIKA GUNDERSON MD Feb 22, 2019 16:33
--- NOTE | 2019-02-22 16:39 | EKG ---
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
[2019-02-22 17:10] VITALS: BP 129/73
--- NOTE | 2019-02-22 17:10 | NUR ---
PATIENT ARRIVED TO UNIT VIA EMS. PATIENT IS CALM AND COMPLIANT. PATIENT IS ORIENTED TO UNIT AND PROCEDURES. PATIENT IS OFFERED FOOD AND DRINK. PATIENT ACCEPTS AND IS EATING DINNER AT THIS TIME. MINI STARTED. DR. COLEMAN NOTIFIED OF ADMISSION. WILL CONTINUE TO MONITOR
[2019-02-22] MEDS: IV NORMAL SALINE 1,000ML 1,000 ML IV SCH (17:22)
--- NOTE | 2019-02-22 19:18 | NUR ---
PT RECEIVED ANTIBIOTICS IN THE ER; WAS NOT ADMINISTERED BY THIS NURSE.
[2019-02-22] MEDS: IPRATRPIUM/ALBUTEROL 0.5/2.5MG 3 ML NEBU. NEB SCH (19:35)
[2019-02-22 19:49] VITALS: BP_SYST 14; BP_SYST 147; BP_DIAS 80
[2019-02-22 23:10] VITALS: BP 106/59
[2019-02-22 23:13] LABS: % LYMPHS 10 % (24-48); % MONOS 5 % (0-10); % SEGS 85 % (35-66)
[2019-02-22 23:14] LABS: ANISOCYTOSIS SLIGHT; PLT ESTIMATE ADEQUATE (ADEQUATE)
[2019-02-23] MEDS: IV NORMAL SALINE 1,000ML 1,000 ML IV SCH (02:55)
[2019-02-23] MEDS: IPRATRPIUM/ALBUTEROL 0.5/2.5MG 3 ML NEBU. NEB SCH ×4 (05:19→20:29)
[2019-02-23 06:13] VITALS: BP 122/60
[2019-02-23 07:14] LABS: BASO % 0 % (0-3); EOS % 0 % (0-3); HEMOGLOBIN 12.3 g/dL (12.0-15.5); LYMPH # 0.4 x10^3/uL (1.0-4.8); LYMPH % 7 % (24-48); MEAN CORPUSCULAR HEMOGLOBIN 35 pg (25-35); MEAN CORPUSCULAR HGB CONC 35 g/dL (31-37); MEAN CORPUSCULAR VOLUME 100 fL (79-100); MONO # 0.4 x10^3/uL (0.0-1.1); MONO % 7 % (0-9); NEUT # 4.9 x10^3uL (1.8-7.7); NEUT % 86 % (31-73); PLATELET COUNT 295 x10^3/uL (140-400); RED BLOOD COUNT 3.51 x10^6/uL (3.50-5.40); RED CELL DISTRIBUTION WIDTH 12.7 % (11.5-14.5); WHITE BLOOD COUNT 5.7 x10^3/uL (4.0-11.0)
[2019-02-23 07:54] LABS: % BANDS 5 % (0-9); % LYMPHS 8 % (24-48); % MONOS 1 % (0-10); % SEGS 86 % (35-66); PLT ESTIMATE ADEQUATE (ADEQUATE)
[2019-02-23] MEDS: NICOTINE 21MG PATCH. TD SCH (08:42)
[2019-02-23 09:04] LABS: BACTERIA,URINE MOD /HPF (0-FEW); BILIRUBIN,URINE NEG (NEG); CLARITY,URINE CLOUDY; COLOR,URINE YELLOW; GLUCOSE,URINE NEG (NEG); NITRITE,URINE NEG (NEG); SQUAMOUS EPITHELIAL CELL,UR MOD /LPF; UROBILINOGEN,URINE 2 mg/dL (0.2 mg/dL)
[2019-02-23 11:15] VITALS: BP 108/64
[2019-02-23 11:58] LABS: CALCIUM 8.1 mg/dL (8.5-10.1); CREATININE 0.4 mg/dL (0.6-1.0); GFR 160.7; POTASSIUM 4.1 mmol/L (3.5-5.1)
[2019-02-23] MEDS ORDERED: ACETAMINOPHEN 325 MG TABLET PO PRN (12:15)
[2019-02-23] MEDS ORDERED: CALCIUM CARBONATE 500 MG TAB.CHEW PO PRN (12:15)
--- NOTE | 2019-02-23 13:28 | HP ---
ADMIT DATE: 02/22/2019 HISTORY OF PRESENT ILLNESS: The patient is a 63-year-old female patient who came to the Emergency Room with complaint of shortness of breath that has been worsening over the last few days associated with cough and yellowish sputum. She got Z-HI a couple of weeks ago and was doing better until last couple of days, not on home oxygen at this time. Though according to daughter, she was qualified for it in the past when she was admitted and intubated for COPD. She was basically investigated in the Emergency Room. She was found to have leukocytosis with a white cell count 15,400. Her chemistry also showed that she has hyponatremia and was admitted and treated, given Solu-Medrol, started on oxygen as on arrival her oxygen saturation on room air was only 84%. PAST MEDICAL HISTORY: Significant for COPD, chronic hypoxic respiratory failure. She had an episode of acute hypoxic respiratory failure that required intubation, mechanical ventilation, was admitted at that [facility] to [facility]. PAST SURGICAL HISTORY: Unremarkable. ALLERGIES: She has no known drug allergies. MEDICATIONS: She is currently on nebulized albuterol and also albuterol inhaler. FAMILY HISTORY: She has one sister as complication of end-stage renal disease and she was on hemodialysis. One sister is still alive, has multiple medical problems. Her father in his 80s because of myocardial infarction. Mother at the age of 65 because of bone cancer. SOCIAL HISTORY: She is , has 3 daughters and 1 son. She smokes half to 1 pack a day. Does not drink alcohol or use recreational drugs. She is retired from the [employer]. REVIEW OF SYSTEMS: The patient denied any blurring of vision, cataract, glaucoma or macular degeneration. Denied any earache, tinnitus or sensorineural deafness. Denied any nosebleeds, stuffy nose or postnasal drip. Denied any sore throat, sore tongue, toothache, hoarseness of voice or difficulty swallowing. Denied any nausea, vomiting, diarrhea or constipation. Denied any hematemesis, melena or hematochezia. Denied any dysuria, frequency or hematuria. Denied any chest pain. Did complain of shortness of breath, cough with yellowish sputum. PHYSICAL EXAMINATION: GENERAL: On arrival to the Emergency Room, the patient looked pale and cachectic, but no jaundice, cyanosis or thyromegaly. No jugular venous distention. No lower limb edema. VITAL SIGNS: Her heart rate was 107, blood pressure was 137/107, temperature was 97.8, respiratory rate 26 and oxygen saturation was 84% on room air, has improved to 92% on 2 liters of oxygen. HEAD, EYES, EARS, NOSE AND THROAT: Showed normocephalic, atraumatic. NECK: Supple. HEART: Showed normal first and second heart sounds with no gallop, rub or murmur. CHEST: Clear to auscultation. No crepitation or rhonchi. ABDOMEN: Distended, soft, nontender. NEUROLOGIC: She was awake, alert, responding appropriately. All her cranial nerves are intact. EXTREMITIES: She moves her extremities without difficulty. LABORATORY DATA: On admission showed a white cell count of 15,400, hemoglobin 14.9, hematocrit 42, MCV 100 and platelet count of 334,000 with normal manual differential. Her chemistry showed a serum sodium of 126, potassium 3.7, chloride 88, bicarbonate 26, anion gap of 12, BUN 3, creatinine 0.5, estimated GFR was 124 mL per minute, glucose 126, calcium was 8.9. Total bilirubin, AST, ALT, alkaline phosphatase were normal. Her beta natriuretic peptide was 149. Total protein was 7.3, albumin 3.3. Urinalysis was essentially unremarkable. Her influenza A and B were negative. The patient was admitted and continued on Solu-Medrol as well as levofloxacin. Continue with IV fluids in the form of normal saline. We will repeat all her lab work and she admitted. FINAL ADMITTING DIAGNOSES: 1. Community-acquired pneumonia. 2. Chronic obstructive pulmonary disease exacerbation. 3. Acute on chronic hypoxic respiratory failure. 4. Hyponatremia. COLUMBA COLEMAN MD DR: ROC/ruthann JOB#: [id number] / [id number]
[2019-02-23] MEDS: methylPREDNISolone SOD SUCC PF 40 MG/ML VIAL. IV SCH ×2 (14:24→20:53)
[2019-02-23 15:01] VITALS: BP 102/59
[2019-02-23 19:17] VITALS: BP 127/64
[2019-02-23] MEDS: NEOMY/BACITR/POLYMYXIN OINT PACKET. TP SCH (20:53)
--- NOTE | 2019-02-23 21:47 | PN ---
DATE: 02/23/2019 SUBJECTIVE: The patient is sitting on the edge of the bed comfortably in no apparent distress. She continued to have cough, but with yellowish sputum. However, she denied any chest pain; denied any chills, rigors or fever. Continued to have shortness of breath on exertion and desaturates on exertion, but generally much better than yesterday according to her and her family as well as the respiratory therapist who saw her yesterday. PHYSICAL EXAMINATION: GENERAL: When I examined her, she looked pale, cachectic, but no jaundice, cyanosis or thyromegaly. No jugular venous distention. No limb edema. VITAL SIGNS: Her heart rate was 79, blood pressure was 108/64, temperature was 97.7, respiratory rate was 24 and oxygen saturation was 96% on 2 liters of oxygen. HEAD, EYES, EARS, NOSE AND THROAT: Showed normocephalic, atraumatic. NECK: Supple. HEART: Showed normal first and second heart sounds. No gallop or murmur. CHEST: Clear to auscultation. No crepitation or rhonchi. ABDOMEN: Distended, soft, nontender. NEUROLOGIC: She is awake, alert, responding appropriately. All cranial nerves intact. She moves extremities without difficulty, although she has marked muscle wasting. Her intake over the last 24 hours was 1540 and no output was recorded. LABORATORY DATA: Her lab work this morning showed her white cell count is down to 5700, hemoglobin 12, hematocrit 35, MCV 100 and platelet count of 295,000. Her chemistry showed serum sodium of 136, potassium 4.1, chloride 102, bicarbonate 26, anion gap of 8, BUN 6, creatinine 0.4, estimated GFR was 160 mL per minute. Her glucose was 155, calcium was 8.1, lactic acid was only 1.6. ASSESSMENT: 1. Community-acquired pneumonia. 2. Chronic obstructive pulmonary disease exacerbation. 3. Acute on chronic hypoxic respiratory failure. PLAN: To continue with IV Solu-Medrol, continue with IV Levaquin. I have discontinued her IV fluid. We will repeat all her lab works tomorrow and probably qualify her to do a 6-minute walk. I explained to the patient that "Oxygen is not going to make your lungs worse; in fact, you need oxygen because your lungs are damaged and you will need oxygen on exertion, not on your bedtime." COLUMBA COLEMAN MD DR: Louisa JOB#: [id number] / [id number]
[2019-02-23 23:39] VITALS: BP 115/55
[2019-02-24] MEDS: IPRATRPIUM/ALBUTEROL 0.5/2.5MG 3 ML NEBU. NEB SCH ×4 (05:28→20:40)
[2019-02-24 05:42] VITALS: BP 119/62
[2019-02-24] MEDS: methylPREDNISolone SOD SUCC PF 40 MG/ML VIAL. IV SCH ×3 (06:14→21:09)
[2019-02-24 06:31] LABS: CALCIUM 8.4 mg/dL (8.5-10.1); CREATININE 0.4 mg/dL (0.6-1.0); GFR 160.7; POTASSIUM 4.1 mmol/L (3.5-5.1)
[2019-02-24 07:01] LABS: HEMATOCRIT 33.4 % (36.0-47.0); HEMOGLOBIN 11.7 g/dL (12.0-15.5); RED BLOOD COUNT 3.34 x10^6/uL (3.50-5.40); RED CELL DISTRIBUTION WIDTH 12.6 % (11.5-14.5); WHITE BLOOD COUNT 9.2 x10^3/uL (4.0-11.0)
[2019-02-24] MEDS: NICOTINE 21MG PATCH. TD SCH (08:17)
[2019-02-24] MEDS: SERTRALINE 25 MG TABLET. PO SCH (08:17)
[2019-02-24] MEDS: NEOMY/BACITR/POLYMYXIN OINT PACKET. TP SCH ×2 (08:17→21:08)
[2019-02-24] MEDS: LACTOBACILLUS RHAMNOSUS GG 1 CAPSULE. PO SCH ×2 (08:17→21:08)
[2019-02-24 10:44] VITALS: BP 142/66
--- NOTE | 2019-02-24 14:59 | NUR ---
NURSING NOTE PT WAS ON BEDSIDE THIS AM UPON ASSESSMENT AND MEDICATION ADMINISTRATION. PT IS CALM AND COMPLIANT WITH ALL CARES THUS FAR. PT C/O SOA THIS AM AND A COUGH WITH CLEAR TO HAINES PHLEGM. PT HAS NICOTINE PATCH PLACED ON HER LEFT ARM. PT HAS BEDSIDE COMMODE IN HER ROOM AND HAS BEEN EDUCATED ABOUT THE IMPORTANCE OF GETTING UP AND MOVING AROUND AND USING THE RESTROOM. PT/OT ORDERED PER DR COLEMAN. PT IS ON 2L OF OXYGEN. PT DAUGHTER STATES SHE HAS HAD HOME O2 TWICE NOW AND PT REFUSES TO USE IT AND SENT IT BACK TO THE COMPANY BOTH TIMES. PT DAUGHTER WOULD LIKE TO TEST PT AND GET HER OXYGEN BACK BECAUSE SHE THINKS SHE NEEDS IT. 6 MIN WALK TEST ORDERED PER DR COLEMAN AND PLAN TO DISCHARGE HOME TOMORROW. PT SON VISITED HER TODAY. WILL CONTINUE TO MONITOR. KAITLIN JIANG.
[2019-02-24 15:08] VITALS: BP 154/71
--- NOTE | 2019-02-24 15:39 | NUR ---
NURSING NOTE 6 MIN WALK BY RESPIRATORY RESTING 93% HR 89 2L 1MIN 87% HR 120 1L 2MIN 89% HR 110 2L 3 MIN 89% HR 112 3L 4 MIN UNABLE 5MIN UNABLE 6MIN UNABLE RESTING 1 MIN 96% HR 89 3L PER RESPIRATORY, PT UNABLE TO WALK FOR FULL 6MIN TEST.
[2019-02-24 18:33] VITALS: BP 150/67
[2019-02-24 22:22] VITALS: BP 123/64
--- NOTE | 2019-02-24 22:50 | PN ---
DATE: SUBJECTIVE: The patient is sitting on the edge of the bed comfortably in no apparent distress, continued to have cough with grayish green sputum. Denied any chest pain, but she has shortness of breath on exertion. She is maintaining her oxygen saturation at 94% on 2 liters of oxygen. OBJECTIVE: GENERAL: When I examined her, she looked pale, cachectic, but no jaundice or cyanosis. No lymphadenopathy, no thyromegaly. No jugular venous distention. No lower limb edema. VITAL SIGNS: Her heart rate was 85, blood pressure was 142/66, temperature was 97.4, respiratory rate was 24, and oxygen saturation was 94% on 2 liters of oxygen. HEAD, EYES, EARS, NOSE AND THROAT: Showed normocephalic, atraumatic. NECK: Supple. HEART: Showed normal first and second heart sounds. No gallop or murmur. CHEST: Clear to auscultation. No crepitation or rhonchi. Showed central trachea, equal reduced expansion, reduced air entry, vesicular sounds, very few scattered rhonchi, could not appreciate any crepitation. ABDOMEN: Scaphoid, soft, nontender. NEUROLOGIC: She was awake, alert, responding appropriately. All cranial nerves intact. She moves extremities without difficulty. Her intake over the last 24 hours was 1540, no output was recorded. LABORATORY DATA: Her lab work this morning showed a white cell count is 9200, hemoglobin 11.7, hematocrit 33, MCV 100, and platelet count 329,000. Her chemistry showed a serum sodium 138, potassium 4.1, chloride 103, bicarbonate 28, anion gap of 7, BUN 7, creatinine 0.4, estimated GFR was 160 mL per minute. Her glucose 149, calcium was 8.4. So far, her blood cultures are negative. ASSESSMENT: 1. Community-acquired pneumonia. 2. Chronic obstructive pulmonary disease exacerbation. 3. Acute on chronic hypoxic respiratory failure. Plan is to continue with IV Solu-Medrol. Continue with IV Levaquin. She did have hyponatremia that has resolved. Her serum sodium was 138 mEq per liter. PLAN: To continue with all her current management. We will arrange for her to have a 6-minute walk to see if she requires home oxygen. We will consult Physical and Occupational Therapy and if she remains stable tomorrow, she can be discharged home to continue treatment as an outpatient. COLUMBA COLEMAN MD DR: Louisa JOB#: [id number] / [id number]
[2019-02-25] MEDS: IPRATRPIUM/ALBUTEROL 0.5/2.5MG 3 ML NEBU. NEB SCH ×4 (05:09→22:28)
[2019-02-25] MEDS: methylPREDNISolone SOD SUCC PF 40 MG/ML VIAL. IV SCH ×2 (05:28→17:32)
[2019-02-25 05:44] VITALS: BP 128/67
[2019-02-25] MEDS: LACTOBACILLUS RHAMNOSUS GG 1 CAPSULE. PO SCH ×2 (07:52→21:52)
[2019-02-25] MEDS: SERTRALINE 25 MG TABLET. PO SCH (07:52)
[2019-02-25] MEDS: NEOMY/BACITR/POLYMYXIN OINT PACKET. TP SCH ×2 (07:52→21:52)
[2019-02-25] MEDS: NICOTINE 21MG PATCH. TD SCH (07:52)
--- NOTE | 2019-02-25 09:30 | PN ---
DATE: 02/25/2019 SUBJECTIVE: The patient is sitting slightly propped up in bed, no apparent distress. On questioning her, she continued to complain of chest tightness, cough with scanty sputum, continued to be shortness of breath. She did drop her blood pressure, her oxygen saturation down to 87 on walking for 1 minute without oxygen. OBJECTIVE: GENERAL: When I saw her this morning, she was pale, cachectic, no jaundice, cyanosis or thyromegaly. No jugular venous distention. No limb edema. VITAL SIGNS: Her heart rate was 82, blood pressure was 128/67, temperature was 97.4, respiratory rate was 18, and oxygen saturation was 92% on 2 liters of oxygen. HEAD, EYES, EARS, NOSE AND THROAT: Showed normocephalic, atraumatic. NECK: Supple. HEART: Showed normal first and second heart sounds. No gallop or murmur. CHEST: Shows central trachea, equally reduced expansion, reduced air entry, vesicular sounds, very few scattered rhonchi, could not appreciate any crepitation. ABDOMEN: Scaphoid, soft, nontender. NEUROLOGIC: She is awake, alert, responding appropriately. All cranial nerves intact. She moves extremities without difficulty. Her intake was 2614, output was recorded. LABORATORY DATA: As of yesterday, her serum sodium was 138, potassium 4.1, chloride 103, bicarbonate 28, anion gap of 7, BUN 7, creatinine 0.4, estimated GFR was 160 mL per minute. Her glucose 149, calcium was 8.4. Her hemoglobin was 11.7, hematocrit 33 with normal white cell count, and platelet. ASSESSMENT: 1. Community-acquired pneumonia for which she continues to be on IV Levaquin. 2. Chronic obstructive pulmonary disease exacerbation. 3. Acute on chronic hypoxic respiratory failure. PLAN: My plan is to cut down her IV Solu-Medrol to twice a day. Continue with IV Levaquin. Continue with bronchodilator. Continue with physical and occupational therapy and hopefully, be able to discharge her home. COLUMBA COLEMAN MD DR: ROC/ruthann JOB#: [id number] / [id number]
[2019-02-25 10:13] VITALS: BP 151/70
--- NOTE | 2019-02-25 11:42 | NUR ---
NURSING NOTE PT WAS ON BEDSIDE THIS AM UPON ASSESSMENT AND MEDICATION ADMINISTRATION. PT STATES SHE FEELS A BIT BETTER THAN YESTERDAY. PT SEEN BY DR COLEMAN, PT STATES SHE WOULD LIKE ONE MORE DAY AND IS NOT QUIT READY TO GO HOME TODAY. PT HAS BEEN WORKING WITH PT AND OT THIS AM. DECREASED HER SOLUMEDROL TO Q12 HRS AND ADDED MUCINEX. WILL CONTINUE TO MONITOR. KAITLIN JIANG.
[2019-02-25 15:23] VITALS: BP 147/69
[2019-02-25 19:39] VITALS: BP 140/77
[2019-02-25 22:37] VITALS: BP 156/79
[2019-02-26] MEDS: IPRATRPIUM/ALBUTEROL 0.5/2.5MG 3 ML NEBU. NEB SCH ×3 (04:51→16:42)
[2019-02-26 05:24] VITALS: BP 128/67
[2019-02-26] MEDS: methylPREDNISolone SOD SUCC PF 40 MG/ML VIAL. IV SCH (06:21)
[2019-02-26] MEDS: NEOMY/BACITR/POLYMYXIN OINT PACKET. TP SCH (08:17)
[2019-02-26] MEDS: SERTRALINE 25 MG TABLET. PO SCH ×2 (08:17→08:18)
[2019-02-26] MEDS: NICOTINE 21MG PATCH. TD SCH (08:17)
[2019-02-26] MEDS: LACTOBACILLUS RHAMNOSUS GG 1 CAPSULE. PO SCH (08:17)
--- NOTE | 2019-02-26 09:08 | NUR ---
NURSING NOTE PT STATES SHE HAS HER ZOLOFT AT HOME BUT DOES NOT TAKE IT ANYMORE. MEDICATION NON-ADMINISTERED. KAITLIN JIANG.
[2019-02-26 10:49] VITALS: BP 152/75
[2019-02-26 14:59] VITALS: BP 139/82
--- NOTE | 2019-02-26 17:44 | NUR ---
NURSING NOTE DISCHARGE PT DISCHARGED HOME VIA AMBULATION ACCOMPANIED BY DAUGHTER AT 1740. [facility]. WRITTEN AND VERBAL DISCHARGE INSTRUCTIONS GIVEN TO PT. HOME O2 SENT HOME WITH PT. NO COMPLICATIONS. KAITLIN JIANG.
--- NOTE | 2019-02-26 20:59 | DS ---
DATE OF DISCHARGE: 02/26/2019 HOSPITAL COURSE: The patient is a 63-year-old female patient who was admitted with recurrent bouts of cough with greenish sputum as well as increasing worsening shortness of breath. She was evaluated in the Emergency Room and was found to have leukocytosis as well as marked hyponatremia together with right middle lobe pneumonia. She was treated with IV antibiotic for community-acquired pneumonia in the form of Zithromax and Rocephin. We also started her on steroids and bronchodilator. She did very well today. She felt much improved, continued to have scanty sputum, but no chest pain, shortness of breath is much improved. Do did 6 minutes of walk, she is qualified here for home oxygen and therefore, the patient will be discharged home to continue on oral antibiotic and to continue on home oxygen. We have emphasized on multiple occasions the need to quit smoking. PHYSICAL EXAMINATION: GENERAL: When I examined her this afternoon, she looked pale, cachectic, but no jaundice, cyanosis or thyromegaly. No jugular venous distention. No limb edema. VITAL SIGNS: His heart rate was 76, blood pressure 152/75, temperature was 97.4, respiratory rate 20, and oxygen saturation was 97% on 2 liters of oxygen. HEAD, EYES, EARS, NOSE AND THROAT: Showed normocephalic, atraumatic. NECK: Supple. HEART: Showed normal first and second heart sounds with no gallop or murmur. CHEST: Clear to auscultation. No crepitation or rhonchi. ABDOMEN: Distended, soft, nontender. No guarding or rigidity. No organomegaly. All hernial orifice intact. Bowel sounds normal. NEUROLOGIC: She is awake, alert, responding appropriately. All cranial nerves intact. She moves extremities without difficulty. She ambulates without assistance or assistive devices. Her intake and output were incompletely recorded. LABORATORY DATA: Showed a white cell count of 9200, hemoglobin 11, hematocrit 33, MCV 100, and platelet count 326,000. Her chemistry showed a serum sodium 138, potassium 4.1, chloride 103, bicarbonate 28, anion gap of 7, BUN 7, creatinine 0.4, estimated GFR was 160 mL per minute. Her glucose 149, calcium was 8.4. Her influenza A and B were negative. Urine legionella antigen was negative and urinalysis essentially showed that she has 11-20 wbc's, moderate amount of bacteria. DISCHARGE MEDICATIONS: The patient was discharged home to continue on Tylenol 650 mg every 6 hours, albuterol sulfate 1 puff every 6 hours, Zithromax 250 mg daily for 3 days, cefdinir 300 mg twice a day for another 5 days. She should continue also on her tapering course of steroids in the form of prednisone 40 mg once a day for 3 days, 30 mg once a day for 3 days, 20 mg once a day for 3 days and then 10 mg once a day for 3 days, sertraline 25 mg daily, calcium carbonate 200 mg after meals. FINAL DISCHARGE DIAGNOSIS: Community-acquired pneumonia, continue with Levaquin 500 mg once a day. FINAL DISCHARGE DIAGNOSES: 1. Community-acquired pneumonia. 2. Chronic obstructive pulmonary disease exacerbation. 3. Acute on chronic hypoxic respiratory failure. COLUMBA COLEMAN MD DR: ROC/ruthann JOB#: [id number] / [id number]
== END 2019-02-26 17:47 | disposition home or self-care (01) | DRG 871 ==
LOC: ER 15:06 → 1 SOUTH 16:28
PROVIDERS: ADMIT Internal Medicine; ATTEND Internal Medicine
DX: A41.9 Sepsis, unspecified organism (principal); J18.9 Pneumonia, unspecified organism; J96.21 Acute and chronic respiratory failure with hypoxia; J44.1 Chronic obstructive pulmonary disease with (acute) exacerbation; E87.1 Hypo-osmolality and hyponatremia; J44.0 Chronic obstructive pulmonary disease with (acute) lower respiratory infection; F17.210 Nicotine dependence, cigarettes, uncomplicated; Z82.49 Family history of ischemic heart disease and other diseases of the circulatory system; Z99.81 Dependence on supplemental oxygen
CPT/HCPCS: 36415; 71045; 80048; 80053; 81001; 83605; 83880; 84484; 85007; 85025; 85027; 87040; 87086; 87449; 87804; 93005; 94618; 94640; 94760; 96374; 99406; J1956; J2920; J2930; J7620; 97110; 97116; 97530; 97535; 99285-25; J7030

== ENCOUNTER 2019-03-05 02:41 | Emergency (ER) | payer MEDICARE ==
[~2019-03-05] VITALS: Ht 162.6 cm; Wt 47.6 kg
[2019-03-05] MEDS ORDERED: IPRATRPIUM/ALBUTEROL 0.5/2.5MG 3 ML NEBU. ONE ×3 (02:47→03:29)
[2019-03-05] MEDS ORDERED: methylPREDNISolone SOD SUCC PF 125 MG/2 ML VIAL. IV ONE (03:00)
[2019-03-05] MEDS ORDERED: IV RINGERS SOLUTION,LACTATED 1,000 ML IV SCH (03:00)
[2019-03-05 03:10] LABS: BASO % 0 % (0-3); EOS % 0 % (0-3); LYMPH # 1.2 x10^3/uL (1.0-4.8); LYMPH % 8 % (24-48); MEAN CORPUSCULAR HEMOGLOBIN 35 pg (25-35); MEAN CORPUSCULAR HGB CONC 34 g/dL (31-37); MEAN CORPUSCULAR VOLUME 103 fL (79-100); MONO # 1.6 x10^3/uL (0.0-1.1); MONO % 11 % (0-9); NEUT # 12.5 x10^3uL (1.8-7.7); NEUT % 81 % (31-73); PLATELET COUNT 361 x10^3/uL (140-400); RED BLOOD COUNT 3.99 x10^6/uL (3.50-5.40); RED CELL DISTRIBUTION WIDTH 12.7 % (11.5-14.5); WHITE BLOOD COUNT 15.4 x10^3/uL (4.0-11.0)
[2019-03-05] MEDS ORDERED: cefTRIAXone SODIUM 1 GM VIAL ONE (03:14)
[2019-03-05] MEDS ORDERED: IV NORMAL SALINE 50ML 50 ML ONE (03:14)
[2019-03-05] MEDS: AZITHROMYCIN 250 MG TABLET. PO ONE ×2 (03:30→03:56)
[2019-03-05] MEDS ORDERED: ENOXAPARIN ** NOTE DOSE ** SYRINGE SQ ONE ×2 (03:30→09:00)
[2019-03-05] MEDS ORDERED: ASPIRIN 81 MG TAB.CHEW PO ONE (03:30)
--- NOTE | 2019-03-05 03:32 | PHYS DOC ---
Past History Past Medical History: COPD, Other Past Surgical History: No Surgical History Smoking: Cigarettes Alcohol Use: None Drug Use: None Adult General Chief Complaint Chief Complaint: SHORTNESS OF BREATH.. ".. I got fucking .... Scared..... I couldn't...... breatg,,,," HPI HPI Patient is a 63 year old female who presents with history of severe dyspnea and generalized wheezing. Patient has had increased coughing with yellow green sputum. Currently on a prednisone taper. Patient has known history of COPD, episodes of hypoxic respiratory failure, O2 dependent at 2 L nasal cannula, history of prior intubations for her acute hypoxic respiratory failure. Patient previous seen in the emergency department on 02/24 for a COPD exacerbation and was started on steroids and antibiotics.. Patient does continue to smoke. No specific ill contacts or travel. Patient is retired from [employer]. Review of Systems Review of Systems Constitutional: Denies fever or chills [] Eyes: Denies change in visual acuity, redness, or eye pain [] HENT: Denies nasal congestion or sore throat [] Respiratory: Complaints of cough, wheezing and shortness of breath [] Cardiovascular: No additional information not addressed in HPI [] GI: Denies abdominal pain, nausea, vomiting, bloody stools or diarrhea [] : Denies dysuria or hematuria [] Musculoskeletal: Denies back pain or joint pain [] Integument: Denies rash or skin lesions [] Neurologic: Denies headache, focal weakness or sensory changes [] Endocrine: Denies polyuria or polydipsia [] All other systems were reviewed and found to be within normal limits, except as documented in this note. Family History Family History As one sister of end-stage renal disease, one sister is alive and multiple medical problems. Father in 80s because of PA. Mother 65 because of bone cancer. Current Medications Current Medications Current Medications Medications (Trade) Dose Ordered Sig/Peyton Start Time Stop Time Status Last Admin Dose Admin Albuterol/ Ipratropium (Duoneb) 3 ml STK-MED ONCE 03/05/19 02:51 03/05/19 02:52 DC Aspirin (Children'S Aspirin) 324 mg 1X ONCE 03/05/19 03:00 03/05/19 03:01 UNV Azithromycin (Zithromax) 500 mg 1X ONCE 03/05/19 03:00 03/05/19 03:01 UNV Ceftriaxone Sodium 1 gm/ Sodium Chloride 50 ml @ 100 mls/hr 1X ONCE 03/05/19 03:00 03/05/19 03:29 UNV 03/05/19 03:15 100 MLS/HR Ceftriaxone Sodium (Rocephin) 1 gm STK-MED ONCE 03/05/19 03:14 03/05/19 03:14 DC Enoxaparin Sodium (Lovenox 150mg Syringe) 60 mg 1X ONCE 03/05/19 03:00 03/05/19 03:01 UNV Lactated Ringer's 1,000 ml @ 100 mls/hr Q10H 03/05/19 02:48 03/05/19 12:47 UNV Methylprednisolone Sodium Succinate (SOLU-Medrol 125MG VIAL) 125 mg 1X ONCE 03/05/19 03:00 03/05/19 03:01 UNV 03/05/19 03:11 125 MG Sodium Chloride 50 ml @ As Directed STK-MED ONCE 03/05/19 03:14 03/05/19 03:14 DC Allergies Allergies Allergies Coded Allergies Type Severity Reaction Last Updated Verified No Known Drug Allergies 11/19/15 No Physical Exam Physical Exam Constitutional: in acute distress, non-toxic appearance. [] HENT: Normocephalic, atraumatic, bilateral external ears normal, oropharynx moist, no oral exudates, nose normal. [] Eyes: PERRLA, EOMI, conjunctiva normal, no discharge. [] Neck: Normal range of motion, no tenderness, supple, no stridor. [] Cardiovascular: Tachycardia Heart rate regular rhythm, no murmur [] Lungs & Thorax: Bilateral breath sounds equal apex, scattered wheezes, on auscultation. The patient maintains a tripod position. Intercostal retractions. Abdomen: Bowel sounds normal, soft, no tenderness, no masses, no pulsatile masses. [] Skin: Warm, diaphoretic, no erythema, no rash. [Poor turgor Back: No tenderness, no CVA tenderness. [] Extremities: No tenderness, no cyanosis, no clubbing, ROM intact, no edema. [] Neurologic: Alert and oriented X 3, moves extremities on request, distal s ensory,, no dose focal deficits noted. [] Psychologic: Affect anxious, judgement normal, mood normal. [] Current Patient Data Vital Signs Vital Signs Date Time Temp Pulse Resp B/P (MAP) Pulse Ox O2 Delivery O2 Flow Rate FiO2 03/05/19 03:18 95 BiPAP/CPAP Lab Results Laboratory Tests Test 03/05/19 02:52 White Blood Count 15.4 x10^3/uL (4.0-11.0) H Red Blood Count 3.99 x10^6/uL (3.50-5.40) Hemoglobin 14.0 g/dL (12.0-15.5) Hematocrit 41.0 % (36.0-47.0) Mean Corpuscular Volume 103 fL (79-100) H Mean Corpuscular Hemoglobin 35 pg (25-35) Mean Corpuscular Hemoglobin Concent 34 g/dL (31-37) Red Cell Distribution Width 12.7 % (11.5-14.5) Platelet Count 361 x10^3/uL (140-400) Neutrophils (%) (Auto) 81 % (31-73) H Lymphocytes (%) (Auto) 8 % (24-48) L Monocytes (%) (Auto) 11 % (0-9) H Eosinophils (%) (Auto) 0 % (0-3) Basophils (%) (Auto) 0 % (0-3) Neutrophils # (Auto) 12.5 x10^3uL (1.8-7.7) H Lymphocytes # (Auto) 1.2 x10^3/uL (1.0-4.8) Monocytes # (Auto) 1.6 x10^3/uL (0.0-1.1) H Eosinophils # (Auto) 0.0 x10^3/uL (0.0-0.7) Basophils # (Auto) 0.0 x10^3/uL (0.0-0.2) Platelet Estimate Pending EKG EKG My interpretation of EKG shows a sinus rhythm at 91 bpm. No findings acute STEMI of contralateral changes.[] Radiology/Procedures Radiology/Procedures [][address] [address] IMAGING REPORT Signed PATIENT: BRITTANEY SANDERSON ACCOUNT: [id number] : 1955 LOCATION: ER AGE: 63 SEX: F EXAM STATUS: DEP ER ORD. PHYSICIAN: JAI HAYWOOD MD REASON: Severe short of air, respiratory failure PROCEDURE: PORTABLE CHEST 1V PORTABLE CHEST 1V INDICATION: Dyspnea, respiratory failure. COMPARISON STUDY: 02/22/2019. FINDINGS: Lungs: Hyperexpanded lung volume. Improving right mid lung linear opacities. No new consolidation. The tracheobronchial tree and hilar structures are normal. Pleura: Pleural thickening versus trace effusions. Heart and Mediastinum: Stable cardiomediastinal silhouette and great vessels. IMPRESSION: Improving right mid lung linear opacities. No new consolidation. Electronically signed by: Radha Morton MD (03/05/2019 5:57 AM) [id number] DICTATED AND SIGNED BY: RADHA MORTON MD DATE: 03/05/19 0557 CC: JAI HAYWOOD MD; [facility] FREEMAN APRN ~ Course & Med Decision Making Course & Med Decision Making Pertinent Labs and Imaging studies reviewed. (See chart for details) 1. Respiratory Failure- Hypoxia 2.. Leukocytosis 15.4 3. Hyponatremia 127 4. DM = [id number] 5. Malnutrition Alb. 2.8 6. COPD exacerbation 7. Tobacco Use Pt. Transfered to [facility]- Dr. Marte accepting for Pulmonary consult at family and pt. request. [] Nicci Disclaimer Dragon Disclaimer This electronic medical record was generated, in whole or in part, using a voice recognition dictation system. Departure Departure: Disposition: 01 HOME/RESIDENCE PRIOR TO ADM Condition: STABLE Referrals: [facility] FREEMAN APRN (PCP) Nicci Disclaimer This chart was dictated in whole or in part using Voice Recognition software in a busy, high-work load, and often noisy Emergency Department environment. It may contain unintended and wholly unrecognized errors or omissions. JAI HAYWOOD MD Mar 05, 2019 03:31
[2019-03-05 03:39] LABS: % BANDS 5 % (0-9); % LYMPHS 8 % (24-48); % MONOS 7 % (0-10); % SEGS 80 % (35-66)
[2019-03-05 03:40] LABS: PLT ESTIMATE ADEQUATE (ADEQUATE)
[2019-03-05 03:41] LABS: CALCIUM 8.7 mg/dL (8.5-10.1); CREATININE 0.5 mg/dL (0.6-1.0); GFR 124.2; POTASSIUM 4.7 mmol/L (3.5-5.1)
[2019-03-05 03:50] LABS: ALBUMIN 2.8 g/dL (3.4-5.0); DIRECT BILIRUBIN 0.2 mg/dL (0.0-0.2); TOTAL BILIRUBIN 0.6 mg/dL (0.2-1.0); TOTAL PROTEIN 6.3 g/dL (6.4-8.2)
[2019-03-05] MEDS ORDERED: ONDANSETRON PF 4 MG/2 ML VIAL. IV PRN (04:15)
[2019-03-05] MEDS ORDERED: SODIUM BICARB ADULT 8.4% 50 MEQ/50 ML DISP.SYRIN. IV ONE (04:15)
[2019-03-05] MEDS ORDERED: SODIUM BICARBONATE 50 MEQ/50 ML VIAL. ONE (04:19)
[2019-03-05] MEDS ORDERED: AZITHROMYCIN 500 MG VIAL. IV ONE (04:23)
[2019-03-05] MEDS ORDERED: IV NORMAL SALINE 250ML 250 ML ONE (04:23)
[2019-03-05] MEDS ORDERED: NICOTINE 21MG PATCH. TD ONE (04:30)
[2019-03-05] MEDS ORDERED: AZITHROMYCIN 500 MG in IV NORMAL SALINE 250ML 250 ML IV ONE (04:30)
[2019-03-05 04:59] LABS: BGAS PH 7.56 (7.35-7.45)
[2019-03-05 05:15] VITALS: BP 136/68
[2019-03-05 05:33] LABS: INFLUENZA A PATIENT NEGATIVE (NEGATIVE); INFLUENZA B PATIENT NEGATIVE (NEGATIVE)
--- NOTE | 2019-03-05 06:00 | RAD ---
PORTABLE CHEST 1V INDICATION: Dyspnea, respiratory failure. COMPARISON STUDY: 02/22/2019. FINDINGS: Lungs: Hyperexpanded lung volume. Improving right mid lung linear opacities. No new consolidation. The tracheobronchial tree and hilar structures are normal. Pleura: Pleural thickening versus trace effusions. Heart and Mediastinum: Stable cardiomediastinal silhouette and great vessels. IMPRESSION: Improving right mid lung linear opacities. No new consolidation. Electronically signed by: Fran Morton MD (03/05/2019 5:57 AM) [facility]
[2019-03-05] MEDS ORDERED: IPRATRPIUM/ALBUTEROL 0.5/2.5MG 3 ML NEBU. NEB SCH (08:00)
[2019-03-06] MEDS ORDERED: AZITHROMYCIN 250 MG in IV NORMAL SALINE 250ML 250 ML IV SCH (09:00)
== END 2019-03-05 05:46 | disposition short-term general hospital (02) ==
LOC: ER 02:41
DX: J96.91 Respiratory failure, unspecified with hypoxia (principal); D72.829 Elevated white blood cell count, unspecified; E87.1 Hypo-osmolality and hyponatremia; E11.9 Type 2 diabetes mellitus without complications; E46 Unspecified protein-calorie malnutrition; J44.1 Chronic obstructive pulmonary disease with (acute) exacerbation; F17.210 Nicotine dependence, cigarettes, uncomplicated; Z68.1 Body mass index [BMI] 19.9 or less, adult; Z99.81 Dependence on supplemental oxygen
CPT/HCPCS: 36415; 71045; 80048; 80076; 82550; 82803; 83690; 83735; 83880; 84443; 84484; 85007; 85025; 85379; 85610; 85730; 87804; 94660; 96361; 96365; 96372; 96375; 99285; J0456; J0696; J1650; J2930; J7050; J7120; 94640

== ENCOUNTER → 2019-07-28 | Outpatient (CLI) | payer MEDICARE ==
--- NOTE | 2019-07-28 12:49 | RAD ---
Examination: CT chest without contrast HISTORY: History of lung mass COMPARISON: None available technique: Axial CT images of the chest were performed without contrast. Coronal and sagittal reformats are performed Exposure: One or more of the following individualized dose reduction techniques were utilized for this examination: 1. Automated exposure control 2. Adjustment of the mA and/or kV according to patient size 3. Use of iterative reconstruction technique FINDINGS: The visualized thyroid gland grossly appears unremarkable. Central airways are patent. Coronary artery calcifications. No evidence for significant mediastinal lymphadenopathy identified. Moderate bilateral lung emphysematous changes. There is irregular spiculated nodule identified in the right apical lung measuring 1.4 cm (prior 1.1 cm). A 5.5 mm nodule identified in the left lower lobe of the left lower lobe of the lung similar to prior exam. The visualized noncontrasted liver, adrenals grossly appears unremarkable. Few calcified splenic granulomas identified. Moderate degenerative changes thoracic spine. IMPRESSION: 1. Increase in size of the spiculated nodule right apical lung measuring 1.4 cm, suspicious for neoplasm. Consider PET-CT scan. 2. Moderate bilateral lung emphysematous changes. . Electronically signed by: Lucio Pablo MD (07/28/2019 12:46 PM) [id number]
== END | disposition home or self-care (01) ==
LOC: CT 10:57
PROVIDERS: ATTEND Internal Medicine Pulmonary Disease
DX: J43.9 Emphysema, unspecified (principal); I25.10 Atherosclerotic heart disease of native coronary artery without angina pectoris; R59.0 Localized enlarged lymph nodes; R91.8 Other nonspecific abnormal finding of lung field; D73.89 Other diseases of spleen
CPT/HCPCS: 71250

== ENCOUNTER → 2020-08-30 | Outpatient (CLI) | payer MEDICARE ==
--- NOTE | 2020-08-30 17:34 | RAD ---
EXAMINATION: CT Chest Without IV contrast. INDICATION:65 years, Female, lung cancer. Multiple lung nodules. Follow-up examination.. COMPARISON: 07/28/2019. TECHNIQUE: Spiral CT was obtained from the jugular notch through the posterior costophrenic recess. S agittal and coronal reformats were obtained. Exposure: One or more of the following individualized dose reduction techniques were utilized for thi s examination: 1. Automated exposure control 2. Adjustment of the mA and/or kV according to patient size 3. Use of iterative reconstruction technique. FINDINGS: LUNGS/PLEURA: Central airways are patent. Moderate to severe pulmonary emphysema. Essentially unchang ed pleural-based spiculated nodule in the right apical lung measures 1.4 cm (series 7 image 240). Sta ble 8 mm lobulated nodule in the left lower lobe (series 5 image 188). Scattered calcified granulomas . No focal consolidation, pleural effusion or pneumothorax. MEDIASTINUM: No pathologic mediastinal or hilar adenopathy. The thoracic aorta and pulmonary arteries are normal in caliber. The heart is normal in size. No pericardial effusion. Moderate calcified tanya nary atherosclerosis. The visualized thyroid and the esophagus are unremarkable. AXILLA/SOFT TISSUE: No supraclavicular or axillary adenopathy. Regional soft tissues are within favian l limits. UPPER ABDOMEN: Calcified splenic granulomas. BONES: No evidence of acute fractures or aggressive osseous lesions. Unchanged chronic mild compressi on fracture of T10 vertebral body. Diffuse osteopenia. IMPRESSION: 1. Essentially unchanged pleural-based spiculated pulmonary nodule in the right lung apex measures 1. 4 cm. 2. Stable 8 mm lobulated solid pulmonary nodule in the left lower lobe. 3. Moderate to severe pulmonary emphysema. Electronically signed by: Wayne Mccann MD (08/30/2020 5:31 PM) [id number]
== END ==
LOC: CT 14:26
PROVIDERS: ATTEND Radiology Radiation Oncology
DX: C34.90 Malignant neoplasm of unspecified part of unspecified bronchus or lung (principal); J43.9 Emphysema, unspecified; R91.1 Solitary pulmonary nodule
CPT/HCPCS: 71250

== ENCOUNTER → 2021-03-10 | Outpatient (CLI) | payer MEDICARE ==
--- NOTE | 2021-03-10 16:43 | RAD ---
EXAM: Chest CT without intravenous contrast. HISTORY: Pulmonary nodule follow-up. TECHNIQUE: Computed tomographic images of the chest were obtained without contrast. Multiplanar refor matting was performed. *One or more of the following individualized dose reduction techniques were utilized for this examina tion: 1. Automated exposure control. 2. Adjustment of the mA and/or kV according to patient size. 3. Use of iterative reconstruction technique. COMPARISON: 08/30/2020 and 07/28/2019. FINDINGS: There is a stable spiculated pleural-based nodular opacity measuring approximately 3.2 x 0. 7 cm within the lateral right lung apex. There is a new mildly displaced fracture deformity involving the overlying lateral right second rib. There is increased soft tissue density surrounding the fract ure line. There is severe emphysema. There is linear scarring within the medial right middle lobe and lingula. There is a slightly lobulated nodule within the left lower lobe measuring 8 mm. This is slightly incr eased in size in density compared to the prior exam. There is bilateral basilar atelectasis or scarri ng. There is no infiltrate, pleural effusion or pneumothorax. There is a 2 mm stable benign pleural b ased nodule within the anterior right upper lobe. The heart is normal in size. There is calcified atherosclerotic plaque involving the aorta, aortic ar ch great vessels and coronary arteries. There is a left-sided superior vena cava. No pathologically e nlarged lymph node is seen. There is a prominent right renal collecting system, partially included on the [id number]. This is similar compared to the prior exam, favoring chronic pelviectasis. There are degenerative changes involving the spine. There is a mild chronic compression fracture of T11. Th ere are few tiny suspected bone islands. IMPRESSION: 1. Stable spiculated pleural-based nodular opacity at the right lung apex with new overlying right se cond rib fracture deformity, likely acute or subacute in etiology. Despite the absence of significant change in the size of the pleural-based lesion, the presence of a new rib fracture in this location is concerning for pathologic fracture due to progressive underlying neoplasm. This lesion was hyperme tabolic on a PET/CT performed 09/05/2019, also favoring neoplasm. 2. Slight increased size in density of an 8 mm left lower lobe pulmonary nodule. Given the interval c hange, this may be within normal limits in size for assessment with PET/CT. 3. Severe emphysema. Electronically signed by: Fernanda Mendoza MD (03/10/2021 4:40 PM) [id number]
== END ==
LOC: CT 13:33
PROVIDERS: ATTEND Radiology Radiation Oncology
DX: S22.31XA Fracture of one rib, right side, initial encounter for closed fracture (principal); R91.1 Solitary pulmonary nodule; J43.9 Emphysema, unspecified; I25.10 Atherosclerotic heart disease of native coronary artery without angina pectoris; I70.0 Atherosclerosis of aorta; M47.819 Spondylosis without myelopathy or radiculopathy, site unspecified; M48.54XA Collapsed vertebra, not elsewhere classified, thoracic region, initial encounter for fracture; X58.XXXA Exposure to other specified factors, initial encounter; Y93.89 Activity, other specified; Y92.89 Other specified places as the place of occurrence of the external cause; Y99.8 Other external cause status
CPT/HCPCS: 71250